=== PATIENT | female | born 1970 | race Caucasian/White ===

== ENCOUNTER 2017-03-20 06:37 | Inpatient (IN) | payer MEDICARE, OTHER ==
[2017-03-20] VITALS (23 sets, daily range): BP systolic 56–118; BP diastolic 34–69; PULSE 52–112; RESP 13–20; TEMP 97.2–98.3; O2SAT 96–100
[2017-03-20 06:48] LABS: BLOOD GAS VENOUS BASE EXCESS -8.7 mmol/L (-2-2); BLOOD GAS VENOUS HCO3 16 mmol/L (22-26); BLOOD GAS VENOUS O2 CONTENT 5.1 Vol % (9.0-17.0); BLOOD GAS VENOUS O2 HGB SAT 47 % (70-76); BLOOD GAS VENOUS PCO2 30 mmHg (44-48); BLOOD GAS VENOUS PO2 31 mmHg (35-40); BLOOD GAS VENOUS pH 7.35 (7.360-7.400); TEMP CORR TO 98.6
[2017-03-20 06:49] LABS: CRITICAL VALUE NO; DRAW SITE IV; FIO2 21 %; OXYGEN DEVICE ROOM AIR; STAT YES
[2017-03-20] MEDS ORDERED: ONDANSETRON HCL 4 MG/2 ML VIAL IV PUSH ONE (07:00)
[2017-03-20] MEDS ORDERED: SODIUM BICARBONATE 8.4% INJ 50 MEQ/50 ML SYR IV PUSH ONE ×3 (07:00→16:45)
[2017-03-20] MEDS ORDERED: ATROPINE SULFATE 1 MG/10 ML SYRINGE IV PUSH ONE (07:00)
[2017-03-20] MEDS ORDERED: CALCIUM GLUCONATE 10% 1 GM/10 ML VIAL IV PUSH ONE ×2 (07:00→07:45)
[2017-03-20] MEDS ORDERED: SODIUM CHLORIDE 0.9% FLUSH 5 ML FLUSH IV FLUSH PRN (07:00)
[2017-03-20 07:06] LABS: AUTOMATED NEUTROPHIL # 6.6 TH/MM3 (1.8-7.7); BASOPHIL # 0.1 TH/MM3 (0-0.2); BASOPHIL % 0.6 % (0.0-2.0); EOSINOPHIL % 0.2 % (0.0-4.0); HEMATOCRIT 25.7 % (35.0-46.0); HEMO FLAGS DIFF FINAL; LYMPH % 25.8 % (9.0-44.0); LYMPHOCYTE # 2.5 TH/MM3 (1.0-4.8); MEAN CELL VOLUME 78.1 FL (80.0-100.0); MEAN CORPUSCULAR HEMOGLOBIN 24.2 PG (27.0-34.0); MEAN CORPUSCULAR HGB CONC 30.9 % (32.0-36.0); MONO % 4.5 % (0.0-8.0); NEUT % 68.9 % (16.0-70.0); PLATELET COUNT 226 TH/MM3 (150-450); RED BLOOD COUNT 3.29 MIL/MM3 (4.00-5.30); RED CELL DISTRIBUTION WIDTH 20.2 % (11.6-17.2); WHITE BLOOD COUNT 9.5 TH/MM3 (4.0-11.0)
[2017-03-20] MEDS ORDERED: DEXTROSE 50% IN WATER 50 ML SYRINGE IV PUSH ONE (07:15)
[2017-03-20] MEDS ORDERED: INSULIN REGULAR (IV INFUSION) 100 UNITS in SODIUM CHLORIDE 0.9% INJ 99 ML IV SCH (07:15)
[2017-03-20] MEDS ORDERED: SODIUM CHLOR 0.9% 250 ML INJ 250 ML IV ONE (07:15)
[2017-03-20] MEDS ORDERED: DEXTROSE 50% IN WATER 50 ML VIAL(D50) IV PUSH PRN (07:15)
[2017-03-20 07:16] LABS: APTT (PATIENT) 23.9 SEC (24.3-30.1); INTERNATIONAL NORMALIZED RATIO 1.1 RATIO; PROTHROMBIN TIME - PATIENT 11.9 SEC (9.8-11.6)
--- NOTE | 2017-03-20 07:23 | RADRPT ---
EXAM DATE/TIME: 03/20/2017 07:03 [facility] COMPARISON: No previous studies available for comparison. INDICATIONS : Syncope. Weakness. MEDICAL HISTORY : None. SURGICAL HISTORY : None. ENCOUNTER: Initial ACUITY: 1 day PAIN SCORE: 6/10 LOCATION: Bilateral chest FINDINGS: A single view of the chest demonstrates the lungs to be symmetrically aerated without evidence of mas s, infiltrate or effusion. The cardiomediastinal contours are unremarkable. Osseous structures are intact. CONCLUSION: No acute cardiopulmonary process. Wayne Hensley MD on March 20, 2017 at 7:21 Board Certified Radiologist. This report was verified electronically.
[2017-03-20] MEDS ORDERED: GLUCAGON 1 MG/ML VIAL IV PUSH ONE ×3 (07:30→09:30)
--- NOTE | 2017-03-20 07:41 | PD ---
HPI Chief Complaint: OD/ Ingestion Time Seen by Provider: 06:49 Travel History International Travel<30 days: No Contact w/Intl Traveler<30days: No Traveled to known affect area: No History of Present Illness HPI Patient is approximately 50-year-old female identified is Vani presents emergency department for altered mental status. According to EMS the patient had taken some pills possibly an attempt to get high tonight. Sometimes after taking her pills she called 911. According to EMS they were pill bottles of verapamil, methadone, hydrocodone/APAP, valproic acid. Patient on arrival is fairly somnolent, hypotensive in the field in the 50s, she received a liter of normal saline prior to arrival with 2 additional liters running wide open on arrival. Patient is significantly altered limiting her history. EMS stated that the patient told them that she flushed her verapamil but later she tells me she took it. 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 SKIN: Focused skin assessment warm/dry. HEAD: Atraumatic. Normocephalic. EYES: Pupils equal and round. No scleral icterus. No injection or drainage. No pinpoint pupils. ENT: No nasal bleeding or discharge. Mucous membranes pink and moist. NECK: Trachea midline. No JVD. CARDIOVASCULAR: Bradycardic with irregular rhythm.. No murmur appreciated. RESPIRATORY: No accessory muscle use. Clear to auscultation. Breath sounds equal bilaterally. GASTROINTESTINAL: Abdomen soft, non-tender, nondistended. Hepatic and splenic margins not palpable. MUSCULOSKELETAL: No obvious deformities. No clubbing. No cyanosis. No edema. NEUROLOGICAL: GCS of 13, follows commands in all 4 extremities, significant only confused unable to provide history. Data Data Last Documented VS Vital Signs Date Time Temp Pulse Resp B/P (MAP) Pulse Ox O2 Delivery O2 Flow Rate FiO2 03/20/17 07:15 90 13 80/42 (55) 100 Room Air 03/20/17 06:38 97.6 Orders Orders Blood Gas Venous (Vbg) (03/20/17 06:30) Electrocardiogram (03/20/17 06:50) Ammonia (03/20/17 06:50) Complete Blood Count With Diff (03/20/17 06:50) Comprehensive Metabolic Panel (03/20/17 06:50) Creatine Kinase (Cpk) (03/20/17 06:50) Prothrombin Time / Inr (Pt) (03/20/17 06:50) Act Partial Throm Time (Ptt) (03/20/17 06:50) Troponin I (03/20/17 06:50) Thyroid Stimulating Hormone (03/20/17 06:50) Urinalysis - C+S If Indicated (03/20/17 06:50) Blood Culture (03/20/17 06:50) Chest, Single Ap (03/20/17 06:50) Blood Glucose (03/20/17 06:50) Ecg Monitoring (03/20/17 06:50) Iv Access Insert/Monitor (03/20/17 06:50) Oximetry (03/20/17 06:50) Sodium Chloride 0.9% Flush (Ns Flush) (03/20/17 07:00) Drug Screen, Random Urine (03/20/17 06:50) Alcohol (Ethanol) (03/20/17 06:50) Tylenol (Acetaminophen) (03/20/17 06:50) Salicylates (Aspirin) (03/20/17 06:50) Calcium Gluconate Inj (Calcium Gluconate (03/20/17 07:00) Atropine Inj (Atropine Inj) (03/20/17 07:00) Sodium Bicarbonate 8.4% Inj (Sodium Bica (03/20/17 07:00) Ondansetron Inj (Zofran Inj) (03/20/17 07:00) Restraints Non-Violent JANES.Q3H (03/20/17 06:53) Urinary Catheter Management JANES.Q8H (03/20/17 06:53) Type And Screen (03/20/17 07:10) Red Blood Cells (Rbc) (03/20/17 07:10) Blood Product Administration (03/20/17 07:10) Sodium Chlor 0.9% 250 Ml Inj (Ns 250 Ml (03/20/17 07:15) Valproic Acid (Depakene) (03/20/17 07:14) Notify Dr: Other (03/20/17 07:11) Bedside Glucose .As Directed (03/20/17 07:11) Hypoglycemia Cc <80 Mg/Dl (03/20/17 07:11) Insulin Regular (Iv Infusion) (Novolin R (03/20/17 07:15) Dextrose 50% In Zoe (Vial) Inj (D50w (Vi (03/20/17 07:15) Dextrose 50% In Zoe (Syr) Inj (D50w (Syr (03/20/17 07:15) Admit Order (Ed Use Only) (03/20/17 ) Labs Laboratory Tests Test 03/20/17 06:30 03/20/17 06:42 03/20/17 07:20 Blood Gas Puncture Site IV Blood Gas Patient Temperature 98.6 Venous Blood pH 7.35 Venous Blood Partial Pressure CO2 30 mmHg Venous Blood Partial Pressure O2 31 mmHg Venous Blood HCO3 16 mmol/L Venous Blood Oxygen Saturation 47 % Venous Blood Oxygen Content 5.1 Vol % Venous Blood Base Excess -8.7 mmol/L Oxygen Delivery Device ROOM AIR Blood Gas Inspired Oxygen 21 % White Blood Count 9.5 TH/MM3 Red Blood Count 3.29 MIL/MM3 Hemoglobin 7.9 GM/DL Hematocrit 25.7 % Mean Corpuscular Volume 78.1 FL Mean Corpuscular Hemoglobin 24.2 PG Mean Corpuscular Hemoglobin Concent 30.9 % Red Cell Distribution Width 20.2 % Platelet Count 226 TH/MM3 Mean Platelet Volume 7.7 FL Neutrophils (%) (Auto) 68.9 % Lymphocytes (%) (Auto) 25.8 % Monocytes (%) (Auto) 4.5 % Eosinophils (%) (Auto) 0.2 % Basophils (%) (Auto) 0.6 % Neutrophils # (Auto) 6.6 TH/MM3 Lymphocytes # (Auto) 2.5 TH/MM3 Monocytes # (Auto) 0.4 TH/MM3 Eosinophils # (Auto) 0.0 TH/MM3 Basophils # (Auto) 0.1 TH/MM3 CBC Comment DIFF FINAL Differential Comment Prothrombin Time 11.9 SEC Prothromb Time International Ratio 1.1 RATIO Activated Partial Thromboplast Time 23.9 SEC Blood Urea Nitrogen 6 MG/DL Creatinine 0.91 MG/DL Random Glucose 167 MG/DL Total Protein 5.1 GM/DL Albumin 2.1 GM/DL Calcium Level 6.8 MG/DL Alkaline Phosphatase 59 U/L Aspartate Amino Transf (AST/SGOT) 14 U/L Alanine Aminotransferase (ALT/SGPT) 15 U/L Total Bilirubin 0.2 MG/DL Sodium Level 140 MEQ/L Potassium Level 2.7 MEQ/L Chloride Level 109 MEQ/L Carbon Dioxide Level 16.0 MEQ/L Anion Gap 15 MEQ/L Estimat Glomerular Filtration Rate 53 ML/MIN Protein Corrected Calcium 7.8 MG/DL Ammonia 35 MCMOL/L Total Creatine Kinase 37 U/L Troponin I LESS THAN 0.02 NG/ML Thyroid Stimulating Hormone 3rd Gen 0.229 uIU/ML Salicylates Level 2.5 MG/DL Acetaminophen Level 6.1 MCG/ML Valproic Acid (Depakene) Level 70 MCG/ML Ethyl Alcohol Level 54 MG/DL Urine Color LIGHT-YELLOW Urine Turbidity CLEAR Urine pH 6.0 Urine Specific Dyer 1.005 Urine Protein 30 mg/dL Urine Glucose (UA) NEG mg/dL Urine Ketones NEG mg/dL Urine Occult Blood NEG Urine Nitrite NEG Urine Bilirubin NEG Urine Urobilinogen LESS THAN 2.0 MG/DL Urine Leukocyte Esterase SMALL Urine WBC 4 /hpf Urine Squamous Epithelial Cells 1 /hpf Urine Bacteria RARE /hpf Microscopic Urinalysis Comment CATH-CULTURE IND Urine Opiates Screen NEG Urine Barbiturates Screen NEG Urine Amphetamines Screen NEG Urine Benzodiazepines Screen NEG Urine Cocaine Screen POS Urine Cannabinoids Screen NEG [facility] Medical Decision Making Medical Screen Exam Complete: Yes Emergency Medical Condition: Yes Differential Diagnosis Calcium channel herber overdose, Tylenol overdose, Depakote overdose, suicidal ideation, suicide attempt, altered mental status, Narrative Course Patient roomed in the emergency department, my initial concerns for this patient are her bradycardia and hypotension in the setting of a verapamil use. Immediately the patient was transferred over to the stretcher and attached to defibrillator pads for monitoring. I reviewed tracings from EMS and the patient appears to have been in third-degree heart block prior to arrival and bradycardic in the 50s. Confirming IV access, the patient was given calcium gluconate 2 g IV, atropine 1 mg IV, bicarbonate 1 amp IV. These medications increase the patient's heart rate from 50-80-90. She appears to be in sinus rhythm now. Given the timing of the medicines that appears to calcium gluconate was the most effective medicine. Her blood pressure remaining hypotensive in the 70s to 80s systolics with maps of 50-60. She was then given a total of 3 mg of glucagon, an additional 2 g of calcium gluconate. I had also given the patient pushed dose pressure to a total of 100 g of epinephrine. This seemed to have no effect on her blood pressure. After all these interventions the patient remaining hypotensive decision was made by myself and Dr. Helm to start the patient on high-dose insulin therapy. She was given a bolus of D50 half amp prior to starting an infusion of regular insulin at 50 units per hour. Her sugar was monitored closely while in the emergency department. She had no hypoglycemia. The patient's labs then began to return and the patient is hypokalemic at 2.7. Potassium replacement has been ordered. The patient also has a history of Tylenol ingestion without a specific timeline the patient was started on Acetadote per protocol. Dr. Helm at the bedside has placed a radial art line for measurement of blood pressure. Patient also being started on Levophed at this time. Blood pressure remains quite low in the emergency department. Unclear the actual cause of her blood pressure the patient remains critically ill. She will be moved to the ICU for ongoing critical care under Dr. Hlem. Critical Care Narrative Aggregate critical care time was [address] Helm and I working in conjunction have been working on this patient for a total of 90 minutes at the bedside that I was present for. He remained at the bedside for additional time in the emergency department. Time to perform other separately billable procedures was not included in the critical care time. My time did not include minutes spent treating any other patients simultaneously or on activities that did not directly contribute to the patient's treatment. The services I provided to this patient were to treat and/or prevent clinically significant deterioration that could result in: , disability, organ failure I provided critical care services requiring my management, as noted below: Chart data review, documentation time, medication orders and management, vital sign assessments/reviewing monitor data, ordering and reviewing lab tests, ordering and interpreting/reviewing x-rays and diagnostic studies, care of the patient and discussion of the patient with the admitting physicians. Diagnosis Primary Impression: Shock Additional Impressions: Calcium channel herber overdose Tylenol overdose Hypokalemia Hypocalcemia Admitting Information Admitting Physician Requests: Admit Scripts Unable to Obtain Active Prescriptions or Reported Meds Condition: Critical Federico Love MD Mar 20, 2017 07:41
[2017-03-20] MEDS ORDERED: TERBUTALINE INJ 1 MG/ML AMP SQ PRN (07:45)
[2017-03-20 07:47] LABS: ACETAMINOPHEN 6.1 MCG/ML (10.0-30.0); ALCOHOL 54 MG/DL (0-5); ALKALINE PHOSPHATASE 59 U/L (45-117); ALT (GPT) 15 U/L (10-53); ANION GAP 15 MEQ/L (5-15); AST (GOT) 14 U/L (15-37); BLOOD UREA NITROGEN 6 MG/DL (7-18); CALCIUM-PROTEIN CORRECTED 7.8 MG/DL (8.5-10.1); CHLORIDE 109 MEQ/L (98-107); CREATINE KINASE 37 U/L (26-192); GLOMERULAR FILTRATION RATE 53 ML/MIN (>89); SODIUM (NA) 140 MEQ/L (136-145); TOTAL BILIRUBIN ADULT 0.2 MG/DL (0.2-1.0)
[2017-03-20 07:48] LABS: POTASSIUM 2.7 MEQ/L (3.5-5.1)
[2017-03-20] MEDS ORDERED: DEXTROSE 5% IV ONE ×6 (08:00→10:00)
[2017-03-20] MEDS ORDERED: ACETYLCYSTEINE IV ONE ×4 (08:00→09:00)
[2017-03-20] MEDS ORDERED: MAGNESIUM SULFATE INJ 4 GM in SODIUM CHLORIDE 0.9% INJ 92 ML IV PRN (08:00)
[2017-03-20] MEDS ORDERED: MAGNESIUM SULFATE INJ 2 GM in SODIUM CHLORIDE 0.9% INJ 96 ML IV PRN (08:00)
[2017-03-20] MEDS ORDERED: RESP: ALBUTEROL 2.5 MG/IPRATROPIUM 0.5 MG NEB (PRN) INH (08:00)
[2017-03-20] MEDS ORDERED: MISCELLANEOUS NURSING INFORMATION XX SCH (08:00)
[2017-03-20] MEDS ORDERED: POTASSIUM CHLOR 20 MEQ PREMIX 100 ML IV PRN ×2 (08:00)
[2017-03-20] MEDS ORDERED: POTASSIUM PHOSPHATE MONOBASIC 500 MG TAB PO PRN (08:00)
[2017-03-20] MEDS ORDERED: POTASSIUM PHOSPHATE MONOBASIC 500 MG TAB PO/TUBE PRN (08:00)
[2017-03-20] MEDS ORDERED: CHLORHEXIDINE GLUCONATE 2 % 1 PACK (2 CLOTHS) TOP PRN (08:00)
[2017-03-20] MEDS ORDERED: WATER IV ONE ×4 (08:00→10:00)
[2017-03-20] MEDS ORDERED: SODIUM PHOSPHATE INJ 30 MMOL in SODIUM CHLOR 0.9% 250 ML INJ 240 ML IV PRN (08:00)
[2017-03-20] MEDS ORDERED: ONDANSETRON HCL 4 MG/2 ML VIAL IV PUSH PRN (08:00)
[2017-03-20] MEDS ORDERED: POTASSIUM CHLOR 40 MEQ PREMIX 100 ML IV PRN ×2 (08:00)
[2017-03-20] MEDS ORDERED: MAGNESIUM OXIDE 400 MG TAB PO PRN (08:00)
--- NOTE | 2017-03-20 08:00 | HHI.HP ---
[facility] Service Critical Care Medicine Primary Care Physician Admission Diagnosis Suspected Verapamil OD Diagnosis: Chief Complaint: intentional overdose Travel History International Travel<30 Days: No Contact w/Intl Traveler <30 Da: No Traveled to Known Affected Are: No History of Present Illness This is a middle-aged female with an unknown past medical history who presents after intentional overdose of medications. EMS found her with an empty bottle of verapamil. Per her initial report, she flushed these pills down the toilet, however, in the ER she may have admitted to taking some or all of them. She also endorsed taking a bottle of Lortab. She endorsed taking a bottle of valproic acid as well. Her tylenol level was 6. her VPA level was 17. EMS said they found empty bottles of verapamil, lortab, methodone, and valproic acid. The patient refuses to answer questions about her medical history or what pills she took. She is arousable but somnolent, but refusing to cooperate. In the emergency department she was given 4gm CaCl, 3 mg glucagon, epinephrine, started on a levophed drip, and then started on high dose insulin therapy at 50 units/hr (1 unit/kg/hr). When I initially evaluated the patient, she was protecting her airway, however, once she arrived to the ICU, she became nauseated and started vomiting, with her somnolence she was no longer protecting her airway and she was emergently intubated. I placed arterial and central lines. we started vasopressin. we increased her insulin drip to 150 units/hr. I discussed the case with poison control who recommended against activated charcoal at this time. they recommended drawing serum osms which we have done. Review of Systems ROS Limitations: Clinical Condition, Altered Mental Status, Refused Past Family Social History Allergies: Coded Allergies: Penicillins (Verified Allergy, Intermediate, 03/20/17) Past Medical History unknown and patient unwilling to participate and give us any information regarding her medical condition. Past Surgical History unknown and patient unwilling to participate and give us any information regarding her medical condition. Reported Medications unknown and patient unwilling to participate and give us any information regarding her medical condition. Active Ordered Medications See MAR Family History unknown and patient unwilling to participate and give us any information regarding her medical condition. Social History unknown and patient unwilling to participate and give us any information regarding her medical condition. Physical Exam Vital Signs Vital Signs Date Time Temp Pulse Resp B/P (MAP) Pulse Ox O2 Delivery O2 Flow Rate FiO2 03/20/17 08:00 83 14 76/41 (53) 100 Nasal Cannula 2.00 03/20/17 07:32 100 Room Air 03/20/17 07:30 91 14 75/43 (54) 100 Room Air 03/20/17 07:15 90 13 80/42 (55) 100 Room Air 03/20/17 07:00 92 14 81/44 (56) 100 Room Air 03/20/17 06:51 86 16 78/46 (57) 100 03/20/17 06:44 60 14 100 03/20/17 06:38 97.6 52 14 66/34 (45) 100 Physical Exam gen: small cachectic appearing middle-aged female, lying in bed, somnolent, in distress heent: pupils 2mm equal, reactive, conjugate. mucous membranes moist. neck: trachea midline. no jvd chest: equal chest rise. clear to auscultation cv: normal rate, HR 74 on my initial evaluation. sinus. hypotensive on my initial evaluation 70s/40s. abd: soft, nontender, nondistended, no guarding extr: 1+ distal pulses, no edema neuro: RASS -2 initially. follows commands when aroused. Bedside Critical Care ultrasound: grossly normal biventricular function, IVC ~ 2cm but with 30-50% respiratory variation, no pericardial effusion. Laboratory Laboratory Tests Test 03/20/17 06:30 03/20/17 06:42 03/20/17 07:20 Blood Gas Puncture Site IV Blood Gas Patient Temperature 98.6 Venous Blood pH 7.35 Venous Blood Partial Pressure CO2 30 Venous Blood Partial Pressure O2 31 Venous Blood HCO3 16 Venous Blood Oxygen Saturation 47 Venous Blood Oxygen Content 5.1 Venous Blood Base Excess -8.7 Oxygen Delivery Device ROOM AIR Blood Gas Inspired Oxygen 21 White Blood Count 9.5 Red Blood Count 3.29 Hemoglobin 7.9 Hematocrit 25.7 Mean Corpuscular Volume 78.1 Mean Corpuscular Hemoglobin 24.2 Mean Corpuscular Hemoglobin Concent 30.9 Red Cell Distribution Width 20.2 Platelet Count 226 Mean Platelet Volume 7.7 Neutrophils (%) (Auto) 68.9 Lymphocytes (%) (Auto) 25.8 Monocytes (%) (Auto) 4.5 Eosinophils (%) (Auto) 0.2 Basophils (%) (Auto) 0.6 Neutrophils # (Auto) 6.6 Lymphocytes # (Auto) 2.5 Monocytes # (Auto) 0.4 Eosinophils # (Auto) 0.0 Basophils # (Auto) 0.1 CBC Comment DIFF FINAL Differential Comment Prothrombin Time 11.9 Prothromb Time International Ratio 1.1 Activated Partial Thromboplast Time 23.9 Blood Urea Nitrogen 6 Creatinine 0.91 Random Glucose 167 Total Protein 5.1 Albumin 2.1 Calcium Level 6.8 Alkaline Phosphatase 59 Aspartate Amino Transf (AST/SGOT) 14 Alanine Aminotransferase (ALT/SGPT) 15 Total Bilirubin 0.2 Sodium Level 140 Potassium Level 2.7 Chloride Level 109 Carbon Dioxide Level 16.0 Anion Gap 15 Estimat Glomerular Filtration Rate 53 Protein Corrected Calcium 7.8 Ammonia 35 Total Creatine Kinase 37 Troponin I LESS THAN 0.02 Thyroid Stimulating Hormone 3rd Gen 0.229 Salicylates Level 2.5 Acetaminophen Level 6.1 Ethyl Alcohol Level 54 Date/Time Source Procedure Growth Status 03/20/17 07:25 Blood Peripheral Aerobic Blood Culture Pending Received 03/20/17 07:25 Blood Peripheral Anaerobic Blood Culture Pending Received Result Diagram: 03/20/17 0642 03/20/17 0642 Imaging Last Impressions Chest X-Ray 03/20/17 0650 Signed Impressions: Service Date/Time: Monday, March 20, 2017 07:03 - CONCLUSION: No acute cardiopulmonary process. MD Ramona Mast VTE Risk Assessment Ramona VTE Risk Assessment: Mod/High Risk (score >= 2) Caprini Risk Assessment Model Point Value = 1 Point Value = 2 Point Value = 3 Point Value = 5 Age 41-60 Minor surgery BMI > 25 kg/m2 Swollen legs Varicose veins or History of unexplained or recurrent spontaneous Oral contraceptives or hormone replacement Sepsis (< 1 month) Serious lung disease, including pneumonia (< 1 month) Abnormal pulmonary function Acute myocardial infarction Congestive heart failure (< 1 month) History of inflammatory bowel disease Medical patient at bed rest Age 61-74 Arthroscopic surgery Major open surgery (> 45 min) Laparoscopic surgery (> 45 min) Malignancy Confined to bed (> 72 hours) Immobilizing plaster cast Central venous access Age >= 75 History of VTE Family history of VTE Factor V Leiden Prothrombin [id number] Lupus anticoagulant Anticardiolipin antibodies Elevated serum homocysteine Heparin-induced thrombocytopenia Other congenital or acquired thrombophilia Stroke (< 1 month) Elective arthroplasty Hip, pelvis, or leg fracture Acute spinal cord injury (< 1 month) Prophylaxis Regimen Total Risk Factor Score Risk Level Prophylaxis Regimen 0-1 Low Early ambulation 2 Moderate Order ONE of the following: *Sequential Compression Device (SCD) *Heparin 5000 units SQ BID 3-4 Higher Order ONE of the following medications: *Heparin 5000 units SQ TID *Enoxaparin/Lovenox 40 mg SQ daily (WT < 150 kg, CrCl > 30 mL/min) *Enoxaparin/Lovenox 30 mg SQ daily (WT < 150 kg, CrCl > 10-29 mL/min) *Enoxaparin/Lovenox 30 mg SQ BID (WT < 150 kg, CrCl > 30 mL/min) AND/OR *Sequential Compression Device (SCD) 5 or more Highest Order ONE of the following medications: *Heparin 5000 units SQ TID (Preferred with Epidurals) *Enoxaparin/Lovenox 40 mg SQ daily (WT < 150 kg, CrCl > 30 mL/min) *Enoxaparin/Lovenox 30 mg SQ daily (WT < 150 kg, CrCl > 10-29 mL/min) *Enoxaparin/Lovenox 30 mg SQ BID (WT < 150 kg, CrCl > 30 mL/min) AND *Sequential Compression Device (SCD) Assessment and Plan Assessment and Plan Assessment: middle-aged female with intentional overdose of suspected Verapamil , methadone, valproic acid and possibly lortab overdose. Her hemodynamics are consistent with calcium channel herber overdose. I have had multiple conversations with poison control this morning. They recommend insulin drip as high as 10 units/kg/hr and a glucagon drip around 3-5 mg/hr. They also recommend serial q4h K, VPA, ammonia levels. The patient is now in multi-organ system failure secondary to her toxic overdose and remains critically ill in decompensating hemodynamic collapse. Plan by systems: Neurologic: Suspected valproic acid overdose Toxic encephalopathy Suspected Lortab overdose Suicide attempt - Frequent neuro checks - serial q4h VPA levels, ammonia levels - versed drip for RASS goal -2 Respiratory: Acute hypoxic and hypercarbic respiratory failure - Secondary to overdose - No weaning of mechanical ventilation until mental status improves and shock improves - wean fio2 for spo2 > 92% - vent bundle, hob at 30 degrees, nebs Cardiovascular: Calcium channel herber overdose Hemodynamic collapse secondary to overdose Mixed cardiogenic/distributive shock secondary to overdose - high dose insulin therapy currently at 3 units/kg/hr, may go up to 10 units/kg /hr - glucagon at 3 mg/hr - levophed at 30 mcg/min - vasopressin at 0.04 units/min - may need to start epinephrine infusion - goal map > 65 mmHg Renal: Acute kidney injury -- Strict I/Os - Secondary to hemodynamic collapse - Continue [place] FEN/GI: Acute protein calorie malnutrition - moderate Life-threatening hypokalemia Hyperammonemia - serial ammonia levels - aggressive replacement of K. at Poison control's recommendation, will tolerate permissive hypokalemia, however, need to keep serum level at least around 3, currently 2.7 - NPO while in refractory shock - serial q4h K - daily bmp Heme/ID: Anemia- unknown cause - hgb > 7. will monitor. no signs of active bleeding. may likely be from iron deficiency or critical illness - transfuse for hgb < 7. - no infectious etiology suspected at this time. afebrile, normal wbc. Endocrine: High-dose insulin therapy High-dose glucagon infusion - serial q30m glucose monitoring -- SSI Prophylaxis: GI Prophylaxis Pepcid IV DVT Prophylaxis -- SCDs Lovenox Lines: - 03/20 right radial art line - 03/20 left SC TLC - [place] Dispo: Remain in the ICU. Very critically ill in decompensating This patient remains critically ill with one or more organ systems which are or may become a threat to life. I have spent in excess of 133 minutes discontinuously in the care and management of this patient. This time is exclusive of procedures, and includes, but is not limited to, evaluation of the patient, review of the medical record, discussions with family, consultants, nursing staff, or respiratory therapy, and documentation in the medical record. Code Status Full Code Discussed Condition With multiple conversations with poison control, ER physician, bedside RN and charge lpn. Sidney Whitehead MD Mar 20, 2017 08:00
[2017-03-20] MEDS: NOREPINEPHRINE-DEXTROSE DRIP 250 ML IV PRN ×3 (08:11→18:08)
[2017-03-20 08:12] LABS: BACTERIA, URINE RARE /hpf; BLOOD, URINE NEG (NEG); GLUCOSE,URINE NEG (NEG); KETONE, URINE NEG (NEG); NITRITE,URINE NEG (NEG); SQUAMOUS EPITHELIAL CELL URINE 1 /hpf (0-5); URINE COLOR LIGHT-YELLOW (YELLW/STRAW)
[2017-03-20 08:16] LABS: COMMENT (UR) CATH-CULTURE IND; CULTURE IF INDICATED CATH CULTURE IND
[2017-03-20] MEDS ORDERED: MULTIVITAMIN INJ 10 ML, THIAMINE INJ 100 MG, FOLIC ACID INJ 1 MG in SODIUM CHLOR 0.45% ... IV ONE (08:45)
[2017-03-20] MEDS ORDERED: EPINEPHrine (1:1000) INJ 2 MG in DEXTROSE 5% IN WATER INJ 250 ML IV PRN ×2 (08:45)
[2017-03-20] MEDS ORDERED: POTASSIUM CHLOR 20 MEQ PREMIX 100 ML IV SCH (08:45)
[2017-03-20] MEDS ORDERED: WATE IV ONE ×2 (09:00)
[2017-03-20 09:46] LABS: BLOOD GAS BASE EXCESS -9.1 mmol/L (-2-2); BLOOD GAS CARBOXYHEMOGLOBIN 2.4 % (0-4); BLOOD GAS HCO3 15 mmol/L (22-26); BLOOD GAS METHEMOGLOBIN 0.9 % (0-2); BLOOD GAS O2 HGB SATURATION 95 % (90-100); BLOOD GAS OXYGEN CONTENT 11.7 Vol % (12.0-20.0); BLOOD GAS PCO2 24 mmHg (38-42); BLOOD GAS PO2 109 mmHg (61-120); BLOOD GAS TOTAL HGB 8.6 G/DL (12.0-16.0); TEMP CORR TO 98.6
[2017-03-20 09:47] LABS: CRITICAL VALUE YES; DRAW SITE ART LINE; LITER FLOW 1 L/M; OXYGEN DEVICE NASAL CANNULA; STAT YES
[2017-03-20] MEDS ORDERED: CALCIUM CHLORIDE IV ONE ×2 (10:00)
--- NOTE | 2017-03-20 10:56 | RADRPT ---
EXAM DATE/TIME: 03/20/2017 10:41 [facility] COMPARISON: CHEST SINGLE AP, March 20, 2017, 7:03. INDICATIONS : Intubation and central line placement. MEDICAL HISTORY : None. SURGICAL HISTORY : None. ENCOUNTER: Initial ACUITY: 1 day PAIN SCORE: Non-responsive. LOCATION: Bilateral chest FINDINGS: Patient is intubated with ET tube tip 2.7 cm from the su in good position. There is a left subcla vian line in place with the tip overlying the junction of the SVC and right atrium. A pneumothorax is not seen. The heart size is normal. There is some prominence of the lung markings which could sugges t some edema. There is further increased density at the left base reflecting some consolidation or at electasis. CONCLUSION: 1. ET tube and left subclavian line in good position. 2. Prominence of the lung markings likely related to edema or some degree of fluid overload. Wayne Hensley MD on March 20, 2017 at 10:53 Board Certified Radiologist. This report was verified electronically.
[2017-03-20 11:01] LABS: ANION GAP 17 MEQ/L (5-15); BICARBONATE 17.9 MEQ/L (21.0-32.0); BLOOD UREA NITROGEN 8 MG/DL (7-18); CHLORIDE 108 MEQ/L (98-107); GLOMERULAR FILTRATION RATE 33 ML/MIN (>89); SODIUM (NA) 143 MEQ/L (136-145)
[2017-03-20 11:02] LABS: ALCOHOL LESS THAN 3 MG/DL (0-5)
[2017-03-20 11:04] LABS: POTASSIUM 2.7 MEQ/L (3.5-5.1)
--- NOTE | 2017-03-20 11:14 | EKG ---
Date Performed: 03/20/2017 Time Performed: 06:45:40 PTAGE: 89 years EKG: Baseline artifact present Slight decrease in heart rate towards the end of the strip of unc lear significance given baseline artifact Normal Sinus rhythm With first degree A-V block NONSPECIFIC ST & T-WAVE ABNORMALITY ABNORMAL RHYTHM ECG NO PREVIOUS TRACING DOCTOR: Jimmy Ellington Interpretating Date/Time 03/20/2017 11:12:51
[2017-03-20 11:26] LABS: BLOOD GAS BASE EXCESS -8.9 mmol/L (-2-2); BLOOD GAS CARBOXYHEMOGLOBIN 1.7 % (0-4); BLOOD GAS HCO3 16 mmol/L (22-26); BLOOD GAS METHEMOGLOBIN 1.1 % (0-2); BLOOD GAS O2 HGB SATURATION 96 % (90-100); BLOOD GAS OXYGEN CONTENT 12.1 Vol % (12.0-20.0); BLOOD GAS PCO2 34 mmHg (38-42); BLOOD GAS PO2 150 mmHg (61-120); BLOOD GAS TOTAL HGB 8.7 G/DL (12.0-16.0); CRITICAL VALUE YES; OXYGEN DEVICE VENTILATOR; TEMP CORR TO 98.6
[2017-03-20 11:27] LABS: DRAW SITE RT BRACHIAL; FIO2 40 %; NUMBER OF ARTERIAL PUNCTURES 1; STAT NO; ULNAR PULSE PRESENT; VENT SETTINGS A/C 500/20/5PEEP
--- NOTE | 2017-03-20 11:35 | PD.PROCEDR ---
Procedure Note Procedure Endotracheal Intubation Diagnosis: Active vomiting and toxic encephalopathy Indications: Worsening acute hypoxic and hypercarbic respiratory failure Consent: Emergent Anesthesia: Versed 10 mg IV, Rocuronium 100 g IV Description of the Procedure: The patient was positioned in the sniffing position. Pre-oxygenation was performed using a [id number]. Anesthesia was induced via rapid sequence. A Hernandez #2 was used for laryngoscopy and a Grade I view was obtained after slight cricoid pressure. Patient's area was slightly anterior and required small amount of cricoid pressure to obtain grade 1 view. A 8.0 cuffed endotracheal tube was inserted atraumatically through the vocal cords. Confirmation of correct endotracheal tube placement was made by equal and bilateral breath sounds and colorimetric CO2 detection. The endotracheal tube was secured at 22 cm at the teeth. There were no immediate complications noted. The patient since admission to the hospital has been hemodynamically unstable. She remains so without any worsening hypotension observed.. A chest x-ray has been ordered. I personally performed the procedure. Sideny Whitehead MD Mar 20, 2017 11:35
--- NOTE | 2017-03-20 11:37 | PD.PROCEDR ---
Procedure Note Procedure Central Line Procedure Note Left subclavian triple lumen catheter Diagnosis: Calcium Channel herber overdose Indications: Need for highly potent vasoactive substances Consent: Emergent Anesthesia: Versed IV Description of the Procedure: The patient was placed in the supine, mild- Trendelenburg position. The area was prepped and draped sterilely. A 19g needle was inserted under negative pressure aspiration and dark venous blood was obtained. A guidewire was inserted easily without resistance. A small incision was made using a #11 blade. Using a modified Seldinger technique, the dilator and 7 Dominican, 20 cm catheter were advanced over the guidewire without resistance. All ports were aspirated and flushed, and had brisk blood return. The line was secured at 20 centimeter at the skin using 2-0 silk interrupted sutures. A Biopatch and Transparent sterile dressing were applied. There were no immediate complications noted. There was minimal EBL. The patient tolerated the procedure well. Ultrasound guidance was not used for this procedure A Chest x-ray has been ordered. I personally performed the procedure. Sidney Whitehead MD Mar 20, 2017 11:37
--- NOTE | 2017-03-20 11:37 | PD.PROCEDR ---
Procedure Note Procedure Procedure: Arterial Line Placement Right radial arterial line Diagnosis: Calcium channel herber overdose Indications: For beat to beat hemodynamic monitoring Consent: Emergent Description of the Procedure: The right wrist was prepped and draped sterilely. 1% lidocaine was used for local anesthesia. The pulse was located and a needle was advanced into the artery. A 20 gauge, 12 cm catheter was advanced into the artery using a modified Seldinger technique. The catheter was sutured to the skin and a sterile dressing was applied. The catheter was connected to a pressure transducer and an arterial waveform was noted. There were no immediate complications noted. There was minimal EBL. I personally performed the procedure. Sidney Whitehead MD Mar 20, 2017 11:37
[2017-03-20] MEDS ORDERED: ACETYLCYSTEINE INJ 5,000 MG in DEXTROSE 5% IN WATE 1000ML INJ 1,000 ML IV ONE ×2 (13:00)
[2017-03-20] MEDS ORDERED: SODIUM BICARBONATE 8.4% INJ 100 ML ONE (13:23)
[2017-03-20] MEDS ORDERED: METHYLENE BLUE 100 MG/10 ML VIAL IV ONE (13:30)
[2017-03-20] MEDS ORDERED: EPINEPHrine HCL (1:1000) 1 MG/ML VIAL ONE (14:24)
[2017-03-20 15:03] LABS: LACTIC ACID GHOST NOT REPORTABLE
[2017-03-20] MEDS: VASOPRESSIN INJ 40 UNITS in DEXTROSE 5% IN WATER 100ML INJ 98 ML IV SCH ×2 (15:50)
[2017-03-20] MEDS: POTASSIUM CHLOR 40 MEQ PREMIX 100 ML IV SCH ×2 (15:51→15:59)
[2017-03-20] MEDS: HYDROCORTISONE SOD SUCCINATE 100 MG VIAL IV PUSH SCH ×2 (15:52→23:02)
[2017-03-20] MEDS: INSULIN REGULAR IV SCH ×6 (15:56→23:28)
[2017-03-20] MEDS: SODIUM CHLORID 0.9% IV SCH ×6 (15:56→23:28)
[2017-03-20] MEDS: GLUCAGON IV SCH ×6 (15:57→21:10)
[2017-03-20] MEDS: DEXTROSE 5% IV SCH ×6 (15:57→21:10)
[2017-03-20] MEDS: WATER IV SCH ×6 (15:57→21:10)
--- NOTE | 2017-03-20 16:07 | PD.PROCEDR ---
Procedure Note Procedure Procedure: Arterial Line Placement Left radial arterial line Diagnosis: Calcium channel herber overdose Indications: Need for beat to beat hemodynamic monitoring Consent: Emergent Description of the Procedure: The left wrist was prepped and draped sterilely. 1% lidocaine was used for local anesthesia. The pulse was located and a needle was advanced into the artery. A 20 gauge, 12 cm catheter was advanced into the artery using a modified Seldinger technique. The catheter was sutured to the skin and a sterile dressing was applied. The catheter was connected to a pressure transducer and an arterial waveform was noted. There were no immediate complications noted. There was minimal EBL. I personally performed the procedure. Sidney Whitehead MD Mar 20, 2017 16:07
[2017-03-20 16:55] LABS: HEMATOCRIT 27.3 % (35.0-46.0); MEAN CELL VOLUME 77.7 FL (80.0-100.0); MEAN CORPUSCULAR HEMOGLOBIN 23.7 PG (27.0-34.0); MEAN CORPUSCULAR HGB CONC 30.5 % (32.0-36.0); PLATELET COUNT 320 TH/MM3 (150-450); RED BLOOD COUNT 3.52 MIL/MM3 (4.00-5.30); RED CELL DISTRIBUTION WIDTH 19.8 % (11.6-17.2); REVIEW FLAG FINAL; WHITE BLOOD COUNT 25.5 TH/MM3 (4.0-11.0)
[2017-03-20 17:39] LABS: BICARBONATE 16.6 MEQ/L (21.0-32.0)
[2017-03-20 18:15] LABS: POTASSIUM 2.7 MEQ/L (3.5-5.1)
[2017-03-20] MEDS: MIDAZOLAM 100 MG/NS 100 ML DRIP Premix IV PRN (21:10)
[2017-03-20] MEDS: FAMOTIDINE 20 MG/2 ML VIAL IV PUSH SCH (21:11)
[2017-03-20 22:49] LABS: BICARBONATE 23.5 MEQ/L (21.0-32.0); POTASSIUM 3.2 MEQ/L (3.5-5.1)
[2017-03-21] VITALS (18 sets, daily range): BP systolic 100–147; BP diastolic 62–76; PULSE 75–98; RESP 20–27; TEMP 98.3–100.4; O2SAT 95–100
[2017-03-21] MEDS: SODIUM CHLORID 0.9% IV SCH ×3 (00:38→02:36)
[2017-03-21] MEDS: INSULIN REGULAR IV SCH ×3 (00:38→02:36)
[2017-03-21] MEDS: VASOPRESSIN INJ 40 UNITS in DEXTROSE 5% IN WATER 100ML INJ 98 ML IV SCH ×2 (00:39)
[2017-03-21] MEDS ORDERED: DEXTROSE 5% IN WATE 1000ML INJ 1,000 ML IV SCH (01:30)
[2017-03-21] MEDS ORDERED: INSULIN REGULAR IV SCH (01:30)
[2017-03-21] MEDS ORDERED: SODIUM CHLORID 0.9% IV SCH (01:30)
[2017-03-21] MEDS: CHLORHEXIDINE GLUCONATE 2 % 1 PACK (2 CLOTHS) TOP SCH (04:00)
[2017-03-21 04:20] LABS: HEMATOCRIT 25.1 % (35.0-46.0); MEAN CELL VOLUME 76.8 FL (80.0-100.0); MEAN CORPUSCULAR HEMOGLOBIN 23.7 PG (27.0-34.0); MEAN CORPUSCULAR HGB CONC 30.9 % (32.0-36.0); PLATELET COUNT 252 TH/MM3 (150-450); RED BLOOD COUNT 3.26 MIL/MM3 (4.00-5.30); RED CELL DISTRIBUTION WIDTH 19.4 % (11.6-17.2); REVIEW FLAG FINAL; WHITE BLOOD COUNT 26.2 TH/MM3 (4.0-11.0)
[2017-03-21 04:32] LABS: INTERNATIONAL NORMALIZED RATIO 1.2 RATIO; PROTHROMBIN TIME - PATIENT 13.1 SEC (9.8-11.6)
[2017-03-21 04:44] LABS: ACETAMINOPHEN 4.9 MCG/ML (10.0-30.0); BICARBONATE 23.9 MEQ/L (21.0-32.0); INDIRECT BILIRUBIN 0.2 MG/DL (0.0-0.8); POTASSIUM 3.4 MEQ/L (3.5-5.1); TOTAL BILIRUBIN ADULT 0.3 MG/DL (0.2-1.0)
[2017-03-21] MEDS: DEXTROSE 5% IV SCH ×10 (06:11→22:25)
[2017-03-21] MEDS: WATER IV SCH ×12 (06:11→22:25)
[2017-03-21] MEDS: GLUCAGON IV SCH ×10 (06:11→22:25)
[2017-03-21] MEDS: MIDAZOLAM 100 MG/NS 100 ML DRIP Premix IV PRN ×2 (06:12→17:36)
[2017-03-21] MEDS: THIAMINE INJ 100 MG in SODIUM CHLORIDE 0.9% INJ 100 ML IV SCH (06:53)
[2017-03-21] MEDS ORDERED: DEXTROSE 10% INJ 1,000 ML IV SCH (07:00)
[2017-03-21 07:32] LABS: BLOOD GAS BASE EXCESS -4.3 mmol/L (-2-2); BLOOD GAS CARBOXYHEMOGLOBIN 1.5 % (0-4); BLOOD GAS HCO3 19 mmol/L (22-26); BLOOD GAS O2 HGB SATURATION 97 % (90-100); BLOOD GAS OXYGEN CONTENT 10.4 Vol % (12.0-20.0); BLOOD GAS PCO2 29 mmHg (38-42); BLOOD GAS PO2 128 mmHg (61-120); BLOOD GAS TOTAL HGB 7.5 G/DL (12.0-16.0); TEMP CORR TO 98.6
[2017-03-21 07:33] LABS: CRITICAL VALUE NO; DRAW SITE ART LINE; FIO2 40 %; OXYGEN DEVICE VENTILATOR; STAT NO; VENT SETTINGS A/C 500/20/5PEEP
[2017-03-21] MEDS: HYDROCORTISONE SOD SUCCINATE 100 MG VIAL IV PUSH SCH ×2 (07:37→14:06)
--- NOTE | 2017-03-21 07:47 | HHI.CCPN ---
Subjective Remarks/Hospital Course This is a middle-aged female with an unknown past medical history who presents after intentional overdose of medications. EMS found her with an empty bottle of verapamil. Per her initial report, she flushed these pills down the toilet, however, in the ER she may have admitted to taking some or all of them. She also endorsed taking a bottle of Lortab. She endorsed taking a bottle of valproic acid as well. Her tylenol level was 6. her VPA level was 17. EMS said they found empty bottles of verapamil, lortab, methodone, and valproic acid. The patient refuses to answer questions about her medical history or what pills she took. She is arousable but somnolent, but refusing to cooperate. In the emergency department she was given 4gm CaCl, 3 mg glucagon, epinephrine, started on a levophed drip, and then started on high dose insulin therapy at 50 units/hr (1 unit/kg/hr). When I initially evaluated the patient, she was protecting her airway, however, once she arrived to the ICU, she became nauseated and started vomiting, with her somnolence she was no longer protecting her airway and she was emergently intubated. I placed arterial and central lines. we started vasopressin. we increased her insulin drip to 150 units/hr. I discussed the case with poison control who recommended against activated charcoal at this time. they recommended drawing serum osms which we have done. Subjective: 03/21: Acute events overnight the patient severely hypoglycemic, on insulin infusion at 500 units an hour which was discontinued at approximately 3 AM. The patient was started on D5 W2 200 cc/hour, and remained on glucagon 3mg/hr. The patient's blood glucose level was noted to be in the still in the 60s the patient received 0.5 amp of D50, with subsequent elevation of blood glucose level to 180 g/dl. Poison control notified at 7:30, the patient was resumed on insulin 1 unit/kilo/hour for a total of 50 units/hour, the patient continues on D5 at 200 cc/hour with every 30 minute monitoring. Guy-Synephrine has been discontinued since 3 AM the patient continues on norepinephrine and vasopressin for vasopressor support. Objective Vital Signs Date Time Temp Pulse Resp B/P (MAP) Pulse Ox O2 Delivery O2 Flow Rate FiO2 03/21/17 04:18 100 40 03/21/17 00:39 97 135/63 03/20/17 20:00 97.8 20 03/20/17 09:45 Nasal Cannula 1.00 Result Diagram: 03/21/17 0350 03/21/17 0350 Other Results Laboratory Tests Test 03/20/17 09:40 03/20/17 11:19 Blood Gas Puncture Site ART LINE RT BRACHIAL Blood Gas Patient Temperature 98.6 98.6 Blood Gas HCO3 15 mmol/L (22-26) 16 mmol/L (22-26) Blood Gas Base Excess -9.1 mmol/L (-2-2) -8.9 mmol/L (-2-2) Blood Gas Oxygen Saturation 95 % (90-100) 96 % (90-100) Arterial Blood pH 7.40 (7.380-7.420) 7.30 (7.380-7.420) Arterial Blood Partial Pressure CO2 24 mmHg (38-42) 34 mmHg (38-42) Arterial Blood Partial Pressure O2 109 mmHg (61-120) 150 mmHg (61-120) Arterial Blood Oxygen Content 11.7 Vol % (12.0-20.0) 12.1 Vol % (12.0-20.0) Arterial Blood Carboxyhemoglobin 2.4 % (0-4) 1.7 % (0-4) Arterial Blood Methemoglobin 0.9 % (0-2) 1.1 % (0-2) Blood Gas Hemoglobin 8.6 G/DL (12.0-16.0) 8.7 G/DL (12.0-16.0) Oxygen Delivery Device NASAL CANNULA VENTILATOR Blood Gas Liter Flow 1 L/M Blood Gas Ventilator Setting A/C 500/20/5PEEP Blood Gas Inspired Oxygen 40 % Imaging Last Impressions Chest X-Ray 03/20/17 0650 Signed Impressions: Service Date/Time: Monday, March 20, 2017 07:03 - CONCLUSION: No acute cardiopulmonary process. Wayne Hensley MD Last Impressions Chest X-Ray 03/20/17 0650 Signed Impressions: Service Date/Time: Monday, March 20, 2017 07:03 - CONCLUSION: No acute cardiopulmonary process. Wayne Hensley MD Objective Remarks GENERAL: Well-developed well-nourished ,critically ill-appearing intubated sedated female SKIN: Warm and dry. HEAD: Atraumatic. Normocephalic. EYES: Pupils equal and round. No scleral icterus. Noted scleral edema. No injection or drainage. ENT: No nasal bleeding or discharge. Mucous membranes pink and moist. NECK: Trachea midline. No JVD. Orotracheal intubated CARDIOVASCULAR: Normal rate, regular rhythm. RESPIRATORY: Mechanical ventilation synchronized No accessory muscle use. Clear to auscultation. Breath sounds equal bilaterally. GASTROINTESTINAL: Abdomen soft, non-tender, nondistended. No guarding. OGT to LIWS MUSCULOSKELETAL: Extremities without clubbing, cyanosis, or edema. No obvious deformities. NEUROLOGICAL:RASS -3. Spontaneous movement of extremities 4, does not all commands Urinary Catheter: Yes Assessment to: Continue [place] insert reason: Measure Accurate Output Date of Insertion: Mar 20, 2017 Vascular Central Line Catheter: Yes Date of Insertion: Mar 20, 2017 Line: Central Venous Catheter Side: Left Location: Subclavian Reason for Continuation His active medications A/P Assessment and Plan Assessment: middle-aged female with intentional overdose of suspected Verapamil , methadone, valproic acid and possibly lortab overdose. Her hemodynamics are consistent with calcium channel herber overdose. I have had multiple conversations with poison control this morning. They recommend insulin drip as high as 10 units/kg/hr and a glucagon drip around 3-5 mg/hr. They also recommend serial q4h K, VPA, ammonia levels. The patient is now in multi-organ system failure secondary to her toxic overdose and remains critically ill in decompensating hemodynamic collapse. Plan by systems: Neurologic: Suspected valproic acid overdose Toxic encephalopathy Suspected Lortab overdose Suicide attempt - Frequent neuro checks - serial ammonia levels - versed drip for RASS goal -2 Respiratory: Acute hypoxic and hypercarbic respiratory failure - Secondary to overdose - No weaning of mechanical ventilation until mental status improves and shock improves - wean fio2 for spo2 > 92% - vent bundle, hob at 30 degrees, nebs -Monitor ABGs Cardiovascular: Calcium channel herber overdose Hemodynamic collapse secondary to overdose Mixed cardiogenic/distributive shock secondary to overdose - Insulin infusion discontinued at 3 AM, the contrary to significant refractory hypoglycemia. Insulin infusion reinitiated at 1 unit/kilo/hour @ 7am-discussed with poison control - glucagon at 3 mg/hr - levophed at 2 mcg/min - vasopressin at 0.04 units/min -Maintain goal MAP > 65 mmHg-phenylephrine discontinued at 03/20/3 AM Renal: Acute kidney injury -- Strict I/Os - Secondary to hemodynamic collapse - Continue [place] FEN/GI: Acute protein calorie malnutrition - moderate Life-threatening hypokalemia Hyperammonemia - serial ammonia levels - aggressive replacement of K. at Poison control's recommendation, will tolerate permissive hypokalemia, however, need to keep serum level at least around 3, currently 2.7 - We'll begin trickle feeds Jevity 1.5- 10cc/hr - daily bmp Heme/ID: Anemia- unknown cause - hgb > 7. will monitor. no signs of active bleeding. may likely be from iron deficiency or critical illness - transfuse for hgb < 7. - Follow-up urine culture- NGTD Endocrine: High-dose insulin therapy High-dose glucagon infusion - serial q30m glucose monitoring -- SSI Prophylaxis: GI Prophylaxis Pepcid IV DVT Prophylaxis -- SCDs Lovenox Lines: - 03/20 right radial art line - 03/20 left SC TLC - [place] Dispo: Remain in the ICU. This patient remains critically ill with one or more organ systems which are or may become a threat to life. I have spent in excess of 60 minutes discontinuously in the care and management of this patient. This time is exclusive of procedures, and includes, but is not limited to, evaluation of the patient, review of the medical record, discussions with family, consultants, nursing staff, or respiratory therapy, and documentation in the medical record. 03/21-plan for poison control to continue insulin infusion greater than 24 hours per MD Freddy (Poison Control), close monitoring. Continue to wean vasopressors as tolerated. Begin trickle feeds. Discussed with Esmer Fernandez (stepmother) and updated her on patient status. [phone]. Physician Nancy Pimentel MD Mar 21, 2017 07:47
[2017-03-21 08:19] LABS: MAGNESIUM 0.8 MG/DL (1.5-2.5)
[2017-03-21] MEDS: FAMOTIDINE 20 MG/2 ML VIAL IV PUSH SCH (08:19)
[2017-03-21] MEDS: DOCUSATE SODIUM 50 MG/SENNA 8.6 MG TAB PO SCH (08:19)
[2017-03-21] MEDS: ENOXAPARIN SODIUM 40 MG/0.4 ML SYRINGE SQ SCH (08:19)
[2017-03-21] MEDS: MULTIVITAMIN TAB PO SCH (08:19)
[2017-03-21 08:25] LABS: BHCG SCREEN QUALITATIVE LESS THAN 1 MIU/ML (0-5)
[2017-03-21] MEDS: DEXTROSE 5% IN WATE 1000ML INJ 1,000 ML IV SCH ×2 (10:00→15:08)
[2017-03-21] MEDS: POTASSIUM PHOSPHATE INJ 30 MMOL in SODIUM CHLOR 0.9% 250 ML INJ 250 ML IV PRN (11:25)
[2017-03-21] MEDS: DEXTROSE 20% IV SCH ×2 (14:51→16:54)
[2017-03-21 16:40] LABS: MAGNESIUM 1.6 MG/DL (1.5-2.5); POTASSIUM 3.9 MEQ/L (3.5-5.1)
[2017-03-21] MEDS ORDERED: DEXTROSE 20% IV SCH (21:45)
[2017-03-21] MEDS ORDERED: WATER IV SCH (21:45)
[2017-03-22] VITALS (19 sets, daily range): BP systolic 111–170; BP diastolic 61–85; PULSE 70–95; RESP 20–25; TEMP 98.8–99.5; O2SAT 94–100
[2017-03-22] LABS: POTASSIUM 3.8 MEQ/L (3.5-5.1)
[2017-03-22] MEDS: MIDAZOLAM 100 MG/NS 100 ML DRIP Premix IV PRN ×3 (01:23→22:26)
[2017-03-22] MEDS: WATER IV SCH ×4 (01:24→06:21)
[2017-03-22] MEDS: DEXTROSE 5% IV SCH ×4 (01:24→06:21)
[2017-03-22] MEDS: GLUCAGON IV SCH ×4 (01:24→06:21)
[2017-03-22] MEDS: HYDROCORTISONE SOD SUCCINATE 100 MG VIAL IV PUSH SCH ×3 (01:31→20:33)
[2017-03-22] MEDS: FAMOTIDINE 20 MG/2 ML VIAL IV PUSH SCH ×3 (01:31→20:33)
[2017-03-22] MEDS: DOCUSATE SODIUM 50 MG/SENNA 8.6 MG TAB PO SCH ×3 (01:31→20:33)
--- NOTE | 2017-03-22 05:01 | RADRPT ---
EXAM DATE/TIME: 03/22/2017 03:57 [facility] COMPARISON: CHEST SINGLE AP, March 20, 2017, 10:41. INDICATIONS : Shortness of breath, possible pulmonary disease. MEDICAL HISTORY : None. SURGICAL HISTORY : None. ENCOUNTER: Subsequent ACUITY: 3 days PAIN SCORE: Non-responsive. LOCATION: Bilateral chest FINDINGS: A single portable frontal view of the chest shows the tip of endotracheal tube 4 cm cephalad to the c megha. Left subclavian central line. Nasogastric tube coiled in the stomach. Bibasilar intra-alveolar infiltrates are more pronounced in the prior study. No effusions. Heart is normal in size. CONCLUSION: Worsening bibasilar infiltrates. Tico Helm Jr., MD on March 22, 2017 at 4:59 Board Certified Radiologist. This report was verified electronically.
[2017-03-22] MEDS: THIAMINE INJ 100 MG in SODIUM CHLORIDE 0.9% INJ 100 ML IV SCH (05:24)
[2017-03-22 05:38] LABS: ALKALINE PHOSPHATASE 76 U/L (45-117); ALT (GPT) 19 U/L (10-53); ANION GAP 8 MEQ/L (5-15); AST (GOT) 27 U/L (15-37); AUTOMATED NEUTROPHIL # 26.5 TH/MM3 (1.8-7.7); BASOPHIL % 0.1 % (0.0-2.0); BICARBONATE 21.6 MEQ/L (21.0-32.0); BLOOD UREA NITROGEN 7 MG/DL (7-18); CHLORIDE 99 MEQ/L (98-107); GLOMERULAR FILTRATION RATE 158 ML/MIN (>89); HEMO FLAGS DIFF FINAL; LYMPH % 2.3 % (9.0-44.0); LYMPHOCYTE # 0.7 TH/MM3 (1.0-4.8); MEAN CELL VOLUME 74.9 FL (80.0-100.0); MEAN CORPUSCULAR HEMOGLOBIN 23.3 PG (27.0-34.0); MEAN CORPUSCULAR HGB CONC 31.1 % (32.0-36.0); MONO % 2.3 % (0.0-8.0); NEUT % 95.3 % (16.0-70.0); PLATELET COUNT 322 TH/MM3 (150-450); POTASSIUM 3.5 MEQ/L (3.5-5.1); RED BLOOD COUNT 4.01 MIL/MM3 (4.00-5.30); RED CELL DISTRIBUTION WIDTH 19.8 % (11.6-17.2); SODIUM (NA) 129 MEQ/L (136-145); TOTAL BILIRUBIN ADULT 0.3 MG/DL (0.2-1.0); WHITE BLOOD COUNT 27.8 TH/MM3 (4.0-11.0)
[2017-03-22] MEDS: ENOXAPARIN SODIUM 40 MG/0.4 ML SYRINGE SQ SCH (08:24)
[2017-03-22] MEDS: MULTIVITAMIN TAB PO SCH (08:24)
[2017-03-22] MEDS ORDERED: DEXTROSE IV SCH ×2 (09:00)
[2017-03-22] MEDS ORDERED: WAT IV SCH ×2 (09:00)
[2017-03-22] MEDS ORDERED: [UNRECOGNIZED DRUG - OTHER] IV SCH ×2 (09:00)
[2017-03-22] MEDS ORDERED: SODIUM CHLORIDE IV SCH ×2 (09:00)
[2017-03-22] MEDS: POTASSIUM PHOSPHATE INJ 30 MMOL in SODIUM CHLOR 0.9% 250 ML INJ 250 ML IV PRN (09:36)
[2017-03-22] MEDS: PROPOFOL 1000 MG/100 ML INJ 100 ML IV PRN ×2 (11:15→18:22)
--- NOTE | 2017-03-22 14:10 | HHI.CCPN ---
Subjective Remarks/Hospital Course This is a middle-aged female with an unknown past medical history who presents after intentional overdose of medications. EMS found her with an empty bottle of verapamil. Per her initial report, she flushed these pills down the toilet, however, in the ER she may have admitted to taking some or all of them. She also endorsed taking a bottle of Lortab. She endorsed taking a bottle of valproic acid as well. Her tylenol level was 6. her VPA level was 17. EMS said they found empty bottles of verapamil, lortab, methodone, and valproic acid. The patient refuses to answer questions about her medical history or what pills she took. She is arousable but somnolent, but refusing to cooperate. In the emergency department she was given 4gm CaCl, 3 mg glucagon, epinephrine, started on a levophed drip, and then started on high dose insulin therapy at 50 units/hr (1 unit/kg/hr). When I initially evaluated the patient, she was protecting her airway, however, once she arrived to the ICU, she became nauseated and started vomiting, with her somnolence she was no longer protecting her airway and she was emergently intubated. I placed arterial and central lines. we started vasopressin. we increased her insulin drip to 150 units/hr. I discussed the case with poison control who recommended against activated charcoal at this time. they recommended drawing serum osms which we have done. Subjective: 03/21: Acute events overnight the patient severely hypoglycemic, on insulin infusion at 500 units an hour which was discontinued at approximately 3 AM. The patient was started on D5 W2 200 cc/hour, and remained on glucagon 3mg/hr. The patient's blood glucose level was noted to be in the still in the 60s the patient received 0.5 amp of D50, with subsequent elevation of blood glucose level to 180 g/dl. Poison control notified at 7:30, the patient was resumed on insulin 1 unit/kilo/hour for a total of 50 units/hour, the patient continues on D5 at 200 cc/hour with every 30 minute monitoring. Guy-Synephrine has been discontinued since 3 AM the patient continues on norepinephrine and vasopressin for vasopressor support. 03/22: Tmax 99.2. The patient continued over the last 24 hours to be hypoglycemic requiring the 20 infusion with titration to maintain a glucose level. This a.m. the patient's glucose level elevated D20W titration decrease. Currently D20W off, and close monitoring every 30 mins. Glucagon discontinued .The patient vacation yielding extreme agitation. The patient continues now on Versed and propofol with goals to wean Versed infusion off. Concern for aspiration based on chest x-ray reviewed today patient started on Levaquin antibiotic. Objective Vital Signs Date Time Temp Pulse Resp B/P (MAP) Pulse Ox O2 Delivery O2 Flow Rate FiO2 03/22/17 12:00 40 03/22/17 11:10 96 03/22/17 10:00 95 03/22/17 08:00 99.0 24 135/72 (93) 142/75 (97) 03/20/17 09:45 Nasal Cannula 1.00 Intake and Output 03/22/17 03/22/17 03/23/17 08:00 16:00 00:00 Intake Total 1506 ml 224 ml Output Total 3400 ml 2300 ml Balance -1894 ml -2076 ml Result Diagram: 03/22/17 0500 03/22/17 0500 Other Results Microbiology Date/Time Source Procedure Growth Status 03/20/17 07:20 Urine Catheterized Urine Urine Culture - Final NO GROWTH IN 48 HOURS. Complete Imaging Last Impressions Chest X-Ray 03/20/17 0650 Signed Impressions: Service Date/Time: Monday, March 20, 2017 07:03 - CONCLUSION: No acute cardiopulmonary process. Wayne Hensley MD Last Impressions Chest X-Ray 03/20/17 0650 Signed Impressions: Service Date/Time: Monday, March 20, 2017 07:03 - CONCLUSION: No acute cardiopulmonary process. Wayne Hensley MD Objective Remarks GENERAL: Well-developed well-nourished ,critically ill-appearing intubated sedated female SKIN: Warm and dry. HEAD: Atraumatic. Normocephalic. EYES: Pupils equal and round. No scleral icterus. Noted scleral edema. No injection or drainage. ENT: No nasal bleeding or discharge. Mucous membranes pink and moist. NECK: Trachea midline. No JVD. Orotracheal intubated CARDIOVASCULAR: Normal rate, regular rhythm. RESPIRATORY: Mechanical ventilation synchronized No accessory muscle use. Clear to auscultation. Breath sounds equal bilaterally. GASTROINTESTINAL: Abdomen soft, non-tender, nondistended. No guarding. OGT to LIWS MUSCULOSKELETAL: Extremities without clubbing, cyanosis, or edema. No obvious deformities. NEUROLOGICAL:RASS -3. Agitation .Spontaneous movement of extremities 4, does not all commands Date of Insertion: Mar 20, 2017 Date of Insertion: Mar 20, 2017 Line: Central Venous Catheter Side: Left Location: Subclavian A/P Assessment and Plan Assessment: middle-aged female with intentional overdose of suspected Verapamil , methadone, valproic acid and possibly lortab overdose. Her hemodynamics are consistent with calcium channel herber overdose. Continued contact with poison control. Patient now hemodynamically stable, not requiring vasopressor support at this time. However has been severely hypoglycemic, now hyponatremic. Prognosis remains guarded at this time. Plan by systems: Neurologic: Suspected valproic acid overdose Toxic encephalopathy Suspected Lortab overdose Suicide attempt - Frequent neuro checks - serial ammonia levels - versed and propofol infusion for RASS goal -2 -03/22 repeat Depakote level Respiratory: Acute hypoxic and hypercarbic respiratory failure Probable aspiration pneumonia - Secondary to overdose - Daily sedation vacation, CPAP trials as tolerated - wean fio2 for spo2 > 92% - vent bundle, hob at 30 degrees, nebs -Monitor ABGs -03/22 chest x-ray worsening increasing infiltrates, possible aspiration- antibiotics see below Cardiovascular: Calcium channel herber overdose Hemodynamic collapse secondary to overdose Mixed cardiogenic/distributive shock secondary to overdose - Insulin infusion discontinued at 3 AM, the contrary to significant refractory hypoglycemia. Insulin infusion reinitiated at 1 unit/kilo/hour @ 7am-discussed with poison control - glucagon at 3 mg/hr discontinued 03/22 - levophed at 2 mcg/min discontinued 03/20 - vasopressin at 0.04 units/min discontinued 03/21 -Maintain goal MAP > 65 mmHg-phenylephrine discontinued at 03/20/3 AM Renal: Acute kidney injury -- Strict I/Os - Secondary to hemodynamic collapse - Continue [place] FEN/GI: Acute protein calorie malnutrition - moderate Life-threatening hypokalemia Hyperammonemia Hypoglycemia Hyponatremia - serial ammonia levels - aggressive replacement of K. at Poison control's recommendation, will tolerate permissive hypokalemia, however, need to keep serum level at least around 3, currently 2.7 - We'll begin trickle feeds Jevity 1.5- 10cc/hr-increase to goal rate of 30 cc/ hour - daily bmp -Change IVF to half-normal saline -Monitor serum sodium levels Heme/ID: Anemia- unknown cause - hgb > 7. will monitor. no signs of active bleeding. may likely be from iron deficiency or critical illness - transfuse for hgb < 7. - Follow-up urine culture- NGTD -03/22 Levaquin 500 mg/day and Atrezonam -03/22 Obtain sputum culture follow-up results Endocrine: High-dose insulin therapy-resolved High-dose glucagon infusion-resolved - Glucose monitoring per ICU protocol -- SSI Prophylaxis: GI Prophylaxis Pepcid IV DVT Prophylaxis -- SCDs Lovenox Lines: - 03/20 right radial art line - 03/20 left SC TLC - [place] Dispo: Remain in the ICU. This patient remains critically ill with one or more organ systems which are or may become a threat to life. I have spent in excess of 60 minutes discontinuously in the care and management of this patient. This time is exclusive of procedures, and includes, but is not limited to, evaluation of the patient, review of the medical record, discussions with family, consultants, nursing staff, or respiratory therapy, and documentation in the medical record. 03/22: Follow-up repeat Depakote levels per recommendations of poison control center. Discussed with Esmer Fernandez (stepmother) and updated her on patient status. [phone]. Physician Nancy Pimentel MD Mar 22, 2017 14:10
[2017-03-22] MEDS: LEVOFLOXACIN 500 MG PREMIX INJ 100 ML IV SCH (14:20)
[2017-03-22] MEDS ORDERED: DEXTROSE 50% IN WATER 50 ML VIAL(D50) IV PRN (18:45)
[2017-03-22] MEDS ORDERED: GLUCAGON 1 MG/ML VIAL OTHER PRN (18:45)
[2017-03-22] MEDS: AZTREONAM INJ 1,000 MG in SODIUM CHLORIDE 0.9% INJ 100 ML IV SCH (20:33)
[2017-03-22] MEDS: INSULIN ASPART SUPPLEMENTAL SCALE SQ SCH (21:00)
[2017-03-23] VITALS (21 sets, daily range): BP systolic 101–155; BP diastolic 74–95; PULSE 54–97; RESP 16–26; TEMP 97.8–98.7; O2SAT 94–100
[2017-03-23] MEDS: CHLORHEXIDINE GLUCONATE 2 % 1 PACK (2 CLOTHS) TOP SCH (04:00)
[2017-03-23] MEDS: PROPOFOL 1000 MG/100 ML INJ 100 ML IV PRN ×2 (04:00→08:20)
[2017-03-23] MEDS: AZTREONAM INJ 1,000 MG in SODIUM CHLORIDE 0.9% INJ 100 ML IV SCH ×3 (04:01→19:30)
[2017-03-23] MEDS: HYDROCORTISONE SOD SUCCINATE 100 MG VIAL IV PUSH SCH ×2 (05:08→19:30)
--- NOTE | 2017-03-23 05:15 | RADRPT ---
EXAM DATE/TIME: 03/23/2017 04:33 [facility] COMPARISON: CHEST SINGLE AP, March 22, 2017, 3:57. INDICATIONS : Short of breath. MEDICAL HISTORY : None. SURGICAL HISTORY : None. ENCOUNTER: Subsequent ACUITY: 4 - 6 days PAIN SCORE: 0/10 LOCATION: Bilateral chest FINDINGS: A single portable frontal view of the chest shows bibasilar pulmonary infiltrates more pronounced on the left. No discrete effusion is observed. The infiltrates are stable to slightly improved from the prior study. Heart is normal in size. Tip of the endotracheal tube 4 cm proximal to su. Multiple EKG leads overlap the region of the stomach obscuring the tip of the nasogastric tube. It is felt coi led within the stomach and projecting off the inferior margin of the film. Left subclavian central li ne. No pneumothorax. CONCLUSION: Bibasilar pulmonary infiltrates somewhat improved from the prior study. Tico Helm Jr., MD on March 23, 2017 at 5:13 Board Certified Radiologist. This report was verified electronically.
[2017-03-23 05:18] LABS: HEMATOCRIT 27.1 % (35.0-46.0); MEAN CELL VOLUME 74.9 FL (80.0-100.0); MEAN CORPUSCULAR HEMOGLOBIN 23.9 PG (27.0-34.0); PLATELET COUNT 283 TH/MM3 (150-450); RED BLOOD COUNT 3.62 MIL/MM3 (4.00-5.30); RED CELL DISTRIBUTION WIDTH 20.3 % (11.6-17.2); REVIEW FLAG FINAL; WHITE BLOOD COUNT 13.4 TH/MM3 (4.0-11.0)
[2017-03-23 05:46] LABS: BICARBONATE 25.2 MEQ/L (21.0-32.0); MAGNESIUM 1.7 MG/DL (1.5-2.5); POTASSIUM 4.4 MEQ/L (3.5-5.1)
[2017-03-23 05:53] LABS: BLOOD GAS BASE EXCESS -1.1 mmol/L (-2-2); BLOOD GAS CARBOXYHEMOGLOBIN 1.5 % (0-4); BLOOD GAS HCO3 22 mmol/L (22-26); BLOOD GAS METHEMOGLOBIN 0.9 % (0-2); BLOOD GAS O2 HGB SATURATION 96 % (90-100); BLOOD GAS OXYGEN CONTENT 12.7 Vol % (12.0-20.0); BLOOD GAS PCO2 29 mmHg (38-42); BLOOD GAS PO2 110 mmHg (61-120); BLOOD GAS TOTAL HGB 9.3 G/DL (12.0-16.0); TEMP CORR TO 98.6
[2017-03-23 05:54] LABS: CRITICAL VALUE NO; DRAW SITE RT RADIAL; FIO2 40 %; NUMBER OF ARTERIAL PUNCTURES 1; OXYGEN DEVICE VENTILATOR; STAT NO; ULNAR PULSE PRESENT; VENT SETTINGS AC20/500/+5
[2017-03-23] MEDS: INSULIN ASPART SUPPLEMENTAL SCALE SQ SCH ×4 (08:00→21:00)
[2017-03-23] MEDS: MULTIVITAMIN TAB PO SCH (08:19)
[2017-03-23] MEDS: ENOXAPARIN SODIUM 40 MG/0.4 ML SYRINGE SQ SCH (08:19)
[2017-03-23] MEDS: THIAMINE HCL 100 MG TAB PO SCH (08:19)
[2017-03-23] MEDS: DOCUSATE SODIUM 50 MG/SENNA 8.6 MG TAB PO SCH ×2 (08:19→19:30)
[2017-03-23] MEDS: FAMOTIDINE 20 MG/2 ML VIAL IV PUSH SCH ×2 (08:19→19:29)
--- NOTE | 2017-03-23 13:14 | HHI.CCPN ---
Subjective Remarks/Hospital Course This is a middle-aged female with an unknown past medical history who presents after intentional overdose of medications. EMS found her with an empty bottle of verapamil. Per her initial report, she flushed these pills down the toilet, however, in the ER she may have admitted to taking some or all of them. She also endorsed taking a bottle of Lortab. She endorsed taking a bottle of valproic acid as well. Her tylenol level was 6. her VPA level was 17. EMS said they found empty bottles of verapamil, lortab, methodone, and valproic acid. The patient refuses to answer questions about her medical history or what pills she took. She is arousable but somnolent, but refusing to cooperate. In the emergency department she was given 4gm CaCl, 3 mg glucagon, epinephrine, started on a levophed drip, and then started on high dose insulin therapy at 50 units/hr (1 unit/kg/hr). When I initially evaluated the patient, she was protecting her airway, however, once she arrived to the ICU, she became nauseated and started vomiting, with her somnolence she was no longer protecting her airway and she was emergently intubated. I placed arterial and central lines. we started vasopressin. we increased her insulin drip to 150 units/hr. I discussed the case with poison control who recommended against activated charcoal at this time. they recommended drawing serum osms which we have done. Subjective: 03/21: Acute events overnight the patient severely hypoglycemic, on insulin infusion at 500 units an hour which was discontinued at approximately 3 AM. The patient was started on D5 W2 200 cc/hour, and remained on glucagon 3mg/hr. The patient's blood glucose level was noted to be in the still in the 60s the patient received 0.5 amp of D50, with subsequent elevation of blood glucose level to 180 g/dl. Poison control notified at 7:30, the patient was resumed on insulin 1 unit/kilo/hour for a total of 50 units/hour, the patient continues on D5 at 200 cc/hour with every 30 minute monitoring. Guy-Synephrine has been discontinued since 3 AM the patient continues on norepinephrine and vasopressin for vasopressor support. 03/22: Tmax 99.2. The patient continued over the last 24 hours to be hypoglycemic requiring the 20 infusion with titration to maintain a glucose level. This a.m. the patient's glucose level elevated D20W titration decrease. Currently D20W off, and close monitoring every 30 mins. Glucagon discontinued .The patient vacation yielding extreme agitation. The patient continues now on Versed and propofol with goals to wean Versed infusion off. Concern for aspiration based on chest x-ray reviewed today patient started on Levaquin antibiotic. 03/23: No acute events overnight. Attempt CPAP trials this a.m. patient tolerated for approximately 1 hour. Leukocytosis declining with addition of Levaquin and Atrezonam. Patient remains GCS 11 T. Alert and responsive, follows commands. Objective Vital Signs Date Time Temp Pulse Resp B/P (MAP) Pulse Ox O2 Delivery O2 Flow Rate FiO2 03/23/17 11:19 94 50 03/23/17 10:00 95 03/23/17 08:00 98.1 20 132/75 (94) 101/77 (85) 03/20/17 09:45 Nasal Cannula 1.00 Intake and Output 03/23/17 03/23/17 03/24/17 08:00 16:00 00:00 Intake Total 625 ml Output Total 850 ml Balance -225 ml Result Diagram: 03/23/17 0455 03/23/17 0455 Other Results Laboratory Tests Test 03/23/17 05:37 Blood Gas Puncture Site RT RADIAL Blood Gas Patient Temperature 98.6 Blood Gas HCO3 22 mmol/L (22-26) Blood Gas Base Excess -1.1 mmol/L (-2-2) Blood Gas Oxygen Saturation 96 % (90-100) Arterial Blood pH 7.49 (7.380-7.420) Arterial Blood Partial Pressure CO2 29 mmHg (38-42) Arterial Blood Partial Pressure O2 110 mmHg (61-120) Arterial Blood Oxygen Content 12.7 Vol % (12.0-20.0) Arterial Blood Carboxyhemoglobin 1.5 % (0-4) Arterial Blood Methemoglobin 0.9 % (0-2) Blood Gas Hemoglobin 9.3 G/DL (12.0-16.0) Oxygen Delivery Device VENTILATOR Blood Gas Ventilator Setting AC20/500/+5 Blood Gas Inspired Oxygen 40 % Imaging Last Impressions Chest X-Ray 03/20/17 0650 Signed Impressions: Service Date/Time: Monday, March 20, 2017 07:03 - CONCLUSION: No acute cardiopulmonary process. Wayne Hensley MD Last Impressions Chest X-Ray 03/20/17 0650 Signed Impressions: Service Date/Time: Monday, March 20, 2017 07:03 - CONCLUSION: No acute cardiopulmonary process. Wayne Hensley MD Objective Remarks GENERAL: Well-developed well-nourished ,intubated female, responding to yes and no questions SKIN: Warm and dry. HEAD: Atraumatic. Normocephalic. EYES: Pupils equal and round. No scleral icterus. Noted scleral edema. No injection or drainage. ENT: No nasal bleeding or discharge. Mucous membranes pink and moist. NECK: Trachea midline. No JVD. Orotracheal intubated CARDIOVASCULAR: Normal rate, regular rhythm. RESPIRATORY: Mechanical ventilation synchronized No accessory muscle use. Clear to auscultation. Breath sounds equal bilaterally. GASTROINTESTINAL: Abdomen soft, non-tender, nondistended. No guarding. OGT to LIWS MUSCULOSKELETAL: Extremities without clubbing, cyanosis, or edema. No obvious deformities. NEUROLOGICAL:RASS -2.Spontaneous movement of extremities 4, follows commands. Motor strength 5/5 B/L upper and lower extremities Date of Insertion: Mar 20, 2017 Date of Insertion: Mar 20, 2017 Line: Central Venous Catheter Side: Left Location: Subclavian A/P Assessment and Plan Assessment: middle-aged female with intentional overdose of suspected Verapamil , methadone, valproic acid and possibly lortab overdose. Her hemodynamics are consistent with calcium channel herber overdose. Continued contact with poison control. Patient now hemodynamically stable, not requiring vasopressor support at this time. However has been severely hypoglycemic, now hyponatremic. Prognosis remains guarded at this time. Plan by systems: Neurologic: Suspected valproic acid overdose Toxic encephalopathy Suspected Lortab overdose Suicide attempt - Frequent neuro checks - Will dc Propofol and change to Precedex infusion for RASS goal -2 -03/22 repeat Depakote level- 16 Respiratory: Acute hypoxic and hypercarbic respiratory failure Probable aspiration pneumonia - Secondary to overdose - Daily sedation vacation, CPAP trials as tolerated -Continue CPAP trial - wean fio2 for spo2 > 92% - vent bundle, hob at 30 degrees, nebs -Monitor ABGs -03/23 chest x-ray improvement B/L infiltrates, possible aspiration-antibiotics see below Hydrocortisone 100 mg every 8 hours begin weaning process today to every 12 hours Cardiovascular: Calcium channel herber overdose Hemodynamic collapse secondary to overdose-resolved Mixed cardiogenic/distributive shock secondary to overdose-resolved - Insulin infusion discontinued at 3 AM, the contrary to significant refractory hypoglycemia. Insulin infusion reinitiated at 1 unit/kilo/hour @ 7am-discussed with poison control - glucagon at 3 mg/hr discontinued 03/22 - levophed at 2 mcg/min discontinued 03/20 - vasopressin at 0.04 units/min discontinued 03/21 -Maintain goal MAP > 65 mmHg-phenylephrine discontinued at 03/20/3 AM Renal: Acute kidney injury-resolved -- Strict I/Os - Secondary to hemodynamic collapse - Continue [place] FEN/GI: Acute protein calorie malnutrition - moderate Life-threatening hypokalemia Hyperammonemia Hypoglycemia-resolved Hyponatremia-resolved - serial ammonia levels - aggressive replacement of K. at Poison control's recommendation, will tolerate permissive hypokalemia, however, need to keep serum level at least around 3, currently 2.7 - Jevity 1.5- goal rate of 30 cc/hour, minimal residual - daily bmp Heme/ID: Anemia- unknown cause - hgb > 7. will monitor. no signs of active bleeding. may likely be from iron deficiency or critical illness - transfuse for hgb < 7. - Follow-up urine culture- NGTD -03/22 Levaquin 500 mg/day and Atrezonam -03/22 Obtain sputum culture follow-up results Endocrine: High-dose insulin therapy-resolved High-dose glucagon infusion-resolved - Glucose monitoring per ICU protocol -- SSI Prophylaxis: GI Prophylaxis Pepcid IV DVT Prophylaxis -- SCDs Lovenox Lines: - 03/20 right radial art line - 03/20 left SC TLC - [place] Dispo: Remain in the ICU. This patient remains critically ill with one or more organ systems which are or may become a threat to life. I have spent in excess of 30 minutes discontinuously in the care and management of this patient. This time is exclusive of procedures, and includes, but is not limited to, evaluation of the patient, review of the medical record, discussions with family, consultants, nursing staff, or respiratory therapy, and documentation in the medical record. Discussed with Esmer Fernandez (stepmother) and updated her on patient status, at bedside. Physician Nancy Pimentel MD Mar 23, 2017 13:14
[2017-03-23] MEDS: LEVOFLOXACIN 500 MG PREMIX INJ 100 ML IV SCH (14:08)
[2017-03-23 14:31] LABS: BLOOD GAS BASE EXCESS 0.3 mmol/L (-2-2); BLOOD GAS CARBOXYHEMOGLOBIN 1.6 % (0-4); BLOOD GAS HCO3 23 mmol/L (22-26); BLOOD GAS METHEMOGLOBIN 1.1 % (0-2); BLOOD GAS O2 HGB SATURATION 94 % (90-100); BLOOD GAS OXYGEN CONTENT 12.3 Vol % (12.0-20.0); BLOOD GAS PCO2 30 mmHg (38-42); BLOOD GAS PO2 80 mmHg (61-120); BLOOD GAS TOTAL HGB 9.3 G/DL (12.0-16.0); TEMP CORR TO 98.6
[2017-03-23 14:32] LABS: CRITICAL VALUE NO; DRAW SITE RT RADIAL; FIO2 40 %; NUMBER OF ARTERIAL PUNCTURES 1; OXYGEN DEVICE VENTILATOR; STAT YES; ULNAR PULSE Y; VENT SETTINGS AC/VT500/R20/P5
[2017-03-23] MEDS ORDERED: DEXMEDETOMIDINE 200 MCG/50 ML Premix IV PRN (15:00)
[2017-03-23] MEDS: DEXMEDETOMIDINE INJ 200 MCG in SODIUM CHLORIDE 0.9% INJ 48 ML IV PRN ×3 (15:44→18:16)
[2017-03-23] MEDS: DEXMEDETOMIDINE 200 MCG in NS 48 ML IV PRN (20:51)
[2017-03-24] VITALS (15 sets, daily range): BP systolic 125–170; BP diastolic 71–93; PULSE 44–65; RESP 12–23; TEMP 98–98.8; O2SAT 95–100
[2017-03-24] MEDS: DEXMEDETOMIDINE 200 MCG in NS 48 ML IV PRN ×3 (00:23→08:24)
--- NOTE | 2017-03-24 03:31 | RADRPT ---
EXAM DATE/TIME: 03/24/2017 02:42 [facility] COMPARISON: CHEST SINGLE AP, March 23, 2017, 4:33. INDICATIONS : Shortness of breath. MEDICAL HISTORY : None. SURGICAL HISTORY : None. ENCOUNTER: Subsequent ACUITY: 1 week PAIN SCORE: Non-responsive. LOCATION: Bilateral chest FINDINGS: 2 frontal views the chest show an endotracheal tube with the tip 4 cm from the su. Left subclavia n central line with the tip at the caval atrial junction. Nasogastric tube coiled within the stomach. Improvement in the bibasilar infiltrates. No effusions. Heart is normal in size. CONCLUSION: Improving but persistent bibasilar infiltrates. Tico Helm Jr., MD on March 24, 2017 at 3:27 Board Certified Radiologist. This report was verified electronically.
[2017-03-24] MEDS: CHLORHEXIDINE GLUCONATE 2 % 1 PACK (2 CLOTHS) TOP SCH ×2 (04:00→19:56)
[2017-03-24] MEDS: AZTREONAM INJ 1,000 MG in SODIUM CHLORIDE 0.9% INJ 100 ML IV SCH ×4 (04:04→19:56)
[2017-03-24 06:13] LABS: HEMATOCRIT 25.5 % (35.0-46.0); MEAN CELL VOLUME 76.1 FL (80.0-100.0); MEAN CORPUSCULAR HEMOGLOBIN 24.5 PG (27.0-34.0); MEAN CORPUSCULAR HGB CONC 32.2 % (32.0-36.0); PLATELET COUNT 238 TH/MM3 (150-450); RED BLOOD COUNT 3.35 MIL/MM3 (4.00-5.30); RED CELL DISTRIBUTION WIDTH 20.2 % (11.6-17.2); REVIEW FLAG FINAL; WHITE BLOOD COUNT 7.6 TH/MM3 (4.0-11.0)
[2017-03-24 06:31] LABS: BICARBONATE 26.2 MEQ/L (21.0-32.0); MAGNESIUM 1.7 MG/DL (1.5-2.5); POTASSIUM 3.7 MEQ/L (3.5-5.1)
[2017-03-24] MEDS: INSULIN ASPART SUPPLEMENTAL SCALE SQ SCH ×4 (08:00→19:55)
[2017-03-24] MEDS: ENOXAPARIN SODIUM 40 MG/0.4 ML SYRINGE SQ SCH (10:50)
[2017-03-24] MEDS: THIAMINE HCL 100 MG TAB PO SCH (10:50)
[2017-03-24] MEDS: DOCUSATE SODIUM 50 MG/SENNA 8.6 MG TAB PO SCH ×2 (10:50→19:56)
[2017-03-24] MEDS: MULTIVITAMIN TAB PO SCH (10:50)
[2017-03-24] MEDS: HYDROCORTISONE SOD SUCCINATE 100 MG VIAL IV PUSH SCH ×2 (10:51→19:55)
[2017-03-24] MEDS: FAMOTIDINE 20 MG/2 ML VIAL IV PUSH SCH ×2 (10:52→19:56)
--- NOTE | 2017-03-24 11:05 | HHI.CCPN ---
Subjective Remarks/Hospital Course This is a middle-aged female with an unknown past medical history who presents after intentional overdose of medications. EMS found her with an empty bottle of verapamil. Per her initial report, she flushed these pills down the toilet, however, in the ER she may have admitted to taking some or all of them. She also endorsed taking a bottle of Lortab. She endorsed taking a bottle of valproic acid as well. Her tylenol level was 6. her VPA level was 17. EMS said they found empty bottles of verapamil, lortab, methodone, and valproic acid. The patient refuses to answer questions about her medical history or what pills she took. She is arousable but somnolent, but refusing to cooperate. In the emergency department she was given 4gm CaCl, 3 mg glucagon, epinephrine, started on a levophed drip, and then started on high dose insulin therapy at 50 units/hr (1 unit/kg/hr). When I initially evaluated the patient, she was protecting her airway, however, once she arrived to the ICU, she became nauseated and started vomiting, with her somnolence she was no longer protecting her airway and she was emergently intubated. I placed arterial and central lines. we started vasopressin. we increased her insulin drip to 150 units/hr. I discussed the case with poison control who recommended against activated charcoal at this time. they recommended drawing serum osms which we have done. Subjective: 03/21: Acute events overnight the patient severely hypoglycemic, on insulin infusion at 500 units an hour which was discontinued at approximately 3 AM. The patient was started on D5 W2 200 cc/hour, and remained on glucagon 3mg/hr. The patient's blood glucose level was noted to be in the still in the 60s the patient received 0.5 amp of D50, with subsequent elevation of blood glucose level to 180 g/dl. Poison control notified at 7:30, the patient was resumed on insulin 1 unit/kilo/hour for a total of 50 units/hour, the patient continues on D5 at 200 cc/hour with every 30 minute monitoring. Guy-Synephrine has been discontinued since 3 AM the patient continues on norepinephrine and vasopressin for vasopressor support. 03/22: Tmax 99.2. The patient continued over the last 24 hours to be hypoglycemic requiring the 20 infusion with titration to maintain a glucose level. This a.m. the patient's glucose level elevated D20W titration decrease. Currently D20W off, and close monitoring every 30 mins. Glucagon discontinued .The patient vacation yielding extreme agitation. The patient continues now on Versed and propofol with goals to wean Versed infusion off. Concern for aspiration based on chest x-ray reviewed today patient started on Levaquin antibiotic. 03/23: No acute events overnight. Attempt CPAP trials this a.m. patient tolerated for approximately 1 hour. Leukocytosis declining with addition of Levaquin and Atrezonam. Patient remains GCS 11 T. Alert and responsive, follows commands. 03/24: No acute events overnight. The patient was maintained on Precedex infusion. Currently on CPAP trials with plan for extubation. Objective Vital Signs Date Time Temp Pulse Resp B/P (MAP) Pulse Ox O2 Delivery O2 Flow Rate FiO2 03/24/17 09:05 100 35 03/24/17 06:00 48 03/24/17 04:00 98.0 20 170/83 (112) 146/93 (110) 03/24/17 03:22 Ventilator 03/20/17 09:45 1.00 Intake and Output 03/24/17 03/24/17 03/25/17 08:00 16:00 00:00 Intake Total 601 ml 50 ml Output Total 800 ml Balance -199 ml 50 ml Result Diagram: 03/24/17 0445 03/24/17 0445 Other Results Laboratory Tests Test 03/23/17 14:17 Blood Gas Puncture Site RT RADIAL Blood Gas Patient Temperature 98.6 Blood Gas HCO3 23 mmol/L (22-26) Blood Gas Base Excess 0.3 mmol/L (-2-2) Blood Gas Oxygen Saturation 94 % (90-100) Arterial Blood pH 7.50 (7.380-7.420) Arterial Blood Partial Pressure CO2 30 mmHg (38-42) Arterial Blood Partial Pressure O2 80 mmHg (61-120) Arterial Blood Oxygen Content 12.3 Vol % (12.0-20.0) Arterial Blood Carboxyhemoglobin 1.6 % (0-4) Arterial Blood Methemoglobin 1.1 % (0-2) Blood Gas Hemoglobin 9.3 G/DL (12.0-16.0) Oxygen Delivery Device VENTILATOR Blood Gas Ventilator Setting AC/VT500/R20/P5 Blood Gas Inspired Oxygen 40 % Imaging Last Impressions Chest X-Ray 03/20/17 0650 Signed Impressions: Service Date/Time: Monday, March 20, 2017 07:03 - CONCLUSION: No acute cardiopulmonary process. Wayne Hensley MD Last Impressions Chest X-Ray 03/20/17 0650 Signed Impressions: Service Date/Time: Monday, March 20, 2017 07:03 - CONCLUSION: No acute cardiopulmonary process. Wayne Hensley MD Objective Remarks GENERAL: Well-developed well-nourished ,intubated female, responding to yes and no questions overweight SKIN: Warm and dry. HEAD: Atraumatic. Normocephalic. EYES: Pupils equal and round. No scleral icterus. Noted scleral edema. No injection or drainage. ENT: No nasal bleeding or discharge. Mucous membranes pink and moist. NECK: Trachea midline. No JVD. Orotracheal intubated CARDIOVASCULAR: Normal rate, regular rhythm. RESPIRATORY: Mechanical ventilation synchronized No accessory muscle use. Clear to auscultation. Breath sounds equal bilaterally. GASTROINTESTINAL: Abdomen soft, non-tender, nondistended. No guarding. OGT to LIWS MUSCULOSKELETAL: Extremities without clubbing, cyanosis, or edema. No obvious deformities. NEUROLOGICAL:RASS -1.Spontaneous movement of extremities 4, follows commands. Motor strength 5/5 B/L upper and lower extremities Date of Insertion: Mar 20, 2017 Date of Insertion: Mar 20, 2017 Line: Central Venous Catheter Side: Left Location: Subclavian A/P Assessment and Plan Assessment: middle-aged female with intentional overdose of suspected Verapamil , methadone, valproic acid and possibly lortab overdose. Her hemodynamics are consistent with calcium channel herber overdose. Continued contact with poison control. Patient now hemodynamically stable. Alert and responsive to commands Plan by systems: Neurologic: Suspected valproic acid overdose Toxic encephalopathy Suspected Lortab overdose Suicide attempt - Frequent neuro checks - Precedex infusion for RASS goal -1, previously on 1 mcg/kg/hr, now discontinued in anticipation for possible extubation -03/22 repeat Depakote level- 16 Respiratory: Acute hypoxic and hypercarbic respiratory failure Probable aspiration pneumonia - Secondary to overdose - Daily sedation vacation, CPAP trials as tolerated -Continue CPAP trial - wean fio2 for spo2 > 92% - vent bundle, hob at 30 degrees, nebs -Monitor ABGs -9/19 chest x-ray improvement B/L infiltrates, possible aspiration-antibiotics see below Hydrocortisone 100 mg every 8 hours begin weaning process today to every 12 hours 03/24-obtain SBT parameters, with plan for extubation Cardiovascular: Calcium channel herber overdose Hemodynamic collapse secondary to overdose-resolved Mixed cardiogenic/distributive shock secondary to overdose-resolved - Insulin infusion discontinued at 3 AM, the contrary to significant refractory hypoglycemia. Insulin infusion reinitiated at 1 unit/kilo/hour @ 7am-discussed with poison control - glucagon at 3 mg/hr discontinued 03/22 - levophed at 2 mcg/min discontinued 03/20 - vasopressin at 0.04 units/min discontinued 03/21 -Maintain goal MAP > 65 mmHg-phenylephrine discontinued at 03/20/3 AM Renal: Acute kidney injury-resolved -- Strict I/Os - Secondary to hemodynamic collapse - Continue [place] FEN/GI: Acute protein calorie malnutrition - moderate Life-threatening hypokalemia Hyperammonemia Hypoglycemia-resolved Hyponatremia-resolved - serial ammonia levels - aggressive replacement of K. at Poison control's recommendation, will tolerate permissive hypokalemia, however, need to keep serum level at least around 3, currently 2.7 - Jevity 1.5- goal rate of 30 cc/hour, tube feeds on hold - daily bmp Heme/ID: Anemia- unknown cause - hgb > 7. will monitor. no signs of active bleeding. may likely be from iron deficiency or critical illness - transfuse for hgb < 7. - Follow-up urine culture- NGTD -03/22 Levaquin 500 mg/day and Atrezonam -03/22 Obtain sputum culture follow-up results Endocrine: High-dose insulin therapy-resolved High-dose glucagon infusion-resolved - Glucose monitoring per ICU protocol -- SSI Prophylaxis: GI Prophylaxis Pepcid IV DVT Prophylaxis -- SCDs Lovenox Lines: - 03/20 right radial art line - 03/20 left SC TLC - [place] Dispo: Discussed with MATH PROFESSOR at bedside. Level 3 Physician Nancy Pimentel MD Mar 24, 2017 11:05
[2017-03-24 11:13] LABS: BLOOD GAS BASE EXCESS 1.5 mmol/L (-2-2); BLOOD GAS CARBOXYHEMOGLOBIN 1.4 % (0-4); BLOOD GAS HCO3 25 mmol/L (22-26); BLOOD GAS METHEMOGLOBIN 0.8 % (0-2); BLOOD GAS O2 HGB SATURATION 97 % (90-100); BLOOD GAS OXYGEN CONTENT 11.8 Vol % (12.0-20.0); BLOOD GAS PCO2 36 mmHg (38-42); BLOOD GAS PO2 140 mmHg (61-120); BLOOD GAS TOTAL HGB 8.5 G/DL (12.0-16.0); TEMP CORR TO 98.6
[2017-03-24 11:14] LABS: CRITICAL VALUE NO; DRAW SITE ART LINE; FIO2 40 %; OXYGEN DEVICE VENTILATOR; STAT YES; ULNAR PULSE PRESENT; VENT SETTINGS CPAP+5/PS+5
[2017-03-24] MEDS: LEVOFLOXACIN 500 MG PREMIX INJ 100 ML IV SCH (13:59)
[2017-03-25] VITALS (14 sets, daily range): BP systolic 113–149; BP diastolic 60–68; PULSE 50–77; RESP 17–24; TEMP 98–98.6; O2SAT 95–100
[2017-03-25] MEDS: AZTREONAM INJ 1,000 MG in SODIUM CHLORIDE 0.9% INJ 100 ML IV SCH (02:29)
--- NOTE | 2017-03-25 04:58 | RADRPT ---
EXAM DATE/TIME: 03/25/2017 03:50 [facility] COMPARISON: CHEST SINGLE AP, March 24, 2017, 2:42. INDICATIONS : Shortness of breath, possible pulmonary disease. MEDICAL HISTORY : None. SURGICAL HISTORY : None. ENCOUNTER: Subsequent ACUITY: 4 - 6 days PAIN SCORE: Non-responsive. LOCATION: Bilateral chest FINDINGS: A single portable frontal view of the chest shows interval extubation and removal of the nasogastric tube. A left subclavian central line remains. Patchy parenchymal opacity is seen involving both lung bases more pronounced on the left. These are unchanged. No effusions. Heart normal in size. CONCLUSION: 1. Interval extubation. 2. Unchanged bibasilar parenchymal opacities more pronounced on the left. Tico Helm Jr., MD on March 25, 2017 at 4:56 Board Certified Radiologist. This report was verified electronically.
[2017-03-25 06:16] LABS: HEMATOCRIT 24.6 % (35.0-46.0); MEAN CELL VOLUME 75.5 FL (80.0-100.0); MEAN CORPUSCULAR HEMOGLOBIN 24.6 PG (27.0-34.0); MEAN CORPUSCULAR HGB CONC 32.6 % (32.0-36.0); PLATELET COUNT 290 TH/MM3 (150-450); RED BLOOD COUNT 3.27 MIL/MM3 (4.00-5.30); RED CELL DISTRIBUTION WIDTH 20.2 % (11.6-17.2); REVIEW FLAG FINAL; WHITE BLOOD COUNT 8.5 TH/MM3 (4.0-11.0)
[2017-03-25 07:04] LABS: BICARBONATE 27.5 MEQ/L (21.0-32.0); MAGNESIUM 1.7 MG/DL (1.5-2.5)
[2017-03-25 07:06] LABS: POTASSIUM 2.9 MEQ/L (3.5-5.1)
--- NOTE | 2017-03-25 07:40 | PD.PSY.CON ---
Provisional Diagnosis Admission Date Mar 20, 2017 at 07:20 [place] I. Major depressive disorder, recurrent, severe, without psychosis, history of anxiety [place]. Deferred History of Present Illness Service Psychiatry Consult Requested By Reason for Consult Recent suicidal attempt Primary Care Physician Unknown HPI The patient is a 46-year-old woman, domiciled in [place] with her boyfriend, unemployed, supported by [facility], with psychiatric history of depression , anxiety, 1 previous psychiatric hospitalization, she denies previous suicidal attempts, she denies the use of substances, medical history of chronic pain, who presents after intentional overdose of medications. EMS found her with an empty bottle of verapamil. Per her initial report, she flushed these pills down the toilet, however, in the ER she may have admitted to taking some or all of them. She also endorsed taking a bottle of Lortab. She endorsed taking a bottle of valproic acid as well. VPA levels were 85. She was admitted in the ICU due to multiple organ failure,Toxic encephalopath. Suspected and valproate and calcium channel and Lortab overdose. Suicide attempt. Acute hypoxic and hypercarbic respiratory failure. Hemodynamic collapse secondary to overdose. Mixed cardiogenic/distributive shock secondary to overdose. Acute kidney injury. Consulted to psychiatry to assess overdose. Patient was seeing in the ICU. Patient is is still little sedated and lethargic with difficulty speaking due to recent extubation. Patient was able to cooperate with the evaluation. She says that she took many of her boyfriend medications. She first says that she just to 4 pills of Xanax and 4 pills of Latuda. She says they had an argument, she was drunk, became very frustrated and took many pills with the intention to . Now, patient says that he was in a moment of frustration and instability and she regretted the overdose. Patient tries to minimize the emotions behind the overdose and the overdose itself. Patient is focused in be discharged from the hospital. Obviously now she denies depressive symptoms, she says that once she stayed with her boyfriend she will be okay, "I have figure out that we just need to speak". Even though the patient denies depressive symptoms, she seems to be very vulnerable and fragile, with tears in her eyes, very distant, thoughtful. She denies suicidal and homicidal ideation at this moment, she denies visual and auditory hallucinations. Patient is oriented 3, without fluctuation of consciousness at this moment. Regarding her psychiatric history she is giving a quite contradictory information, she says that she has history of anxiety and depression, denies suicidal attempts, that she has never been hospitalized, but minutes later says that she was hospitalized once due to a suicidal attempt. She also at the beginning denies the use of psychotropics, but later on admits that she uses Xanax "and others". Review of Systems Constitutional: DENIES: Diaphoretic episodes, Fatigue, Fever, Weight gain, Weight loss, Chills, Dizziness, Change in appetite, Night Sweats Endocrine: DENIES: Abnorml menstrual pattern, Heat/cold intolerance, Polydipsia , Polyuria, Polyphagia Eyes: DENIES: Blurred vision, Diplopia, Eye inflammation, Eye pain, Vision loss , Photosensitivity, Double Vision Ears, nose, mouth, throat: DENIES: Tinnitus, Hearing loss, Vertigo, Nasal discharge, Oral lesions, Throat pain, Hoarseness, Ear Pain, Running Nose, Epistaxis, Sinus Pain, Toothache, Odynophagia Respiratory: DENIES: Apneas, Cough, Snoring, Wheezing, Hemoptysis, Sputum production, Shortness of breath Gastrointestinal: DENIES: Abdominal pain, Black stools, Bloody stools, Constipation, Diarrhea, Nausea, Vomiting, Difficulty Swallowing, Anorexia Musculoskeletal: DENIES: Joint pain, Muscle aches, Stiffness, Joint Swelling, Back pain, Neck pain Integumentary: DENIES: Abnormal pigmentation, Pruritus, Rash, Nail changes, Breast masses, Breast skin changes, Nipple discharge Hematologic/lymphatic: DENIES: Bruising, Lymphadenopathy Immunologic/allergic: DENIES: Eczema, Urticaria Neurologic: DENIES: Abnormal gait, Headache, Localized weakness, Paresthesias, Seizures, Speech Problems, Tremor, Poor Balance Psychiatric: COMPLAINS OF: Depression, Suicidal Ideation, DENIES: Anxiety, Confusion, Mood changes, Hallucinations, Agitation, Homicidal Ideation, Delusions Past Family Social History Coded Allergies: Penicillins (Verified Allergy, Intermediate, 03/20/17) Unable to Obtain Active Prescriptions or Reported Meds Current Medications Medications (Trade) Dose Ordered Sig/Hector Route Start Time Stop Time Status Last Admin (NS Flush) 2 ml UNSCH PRN IV FLUSH 03/20/17 07:00 (D50w (Vial) Inj) 50 ml UNSCH PRN IV PUSH 03/20/17 07:15 (Brethine Inj) 1 mg UNSCH PRN SQ 03/20/17 07:45 (Mag-Ox) 800 mg UNSCH PRN PO 03/20/17 08:00 Magnesium Sulfate 4 gm/Sodium Chloride 100 ml @ 50 mls/hr UNSCH PRN IV 03/20/17 08:00 03/21/17 11:25 Magnesium Sulfate 2 gm/Sodium Chloride 100 ml @ 50 mls/hr UNSCH PRN IV 03/20/17 08:00 03/21/17 17:35 Potassium Chloride 100 ml @ 50 mls/hr Q2H PRN IV 03/20/17 08:00 Potassium Chloride 100 ml @ 50 mls/hr Q2H PRN IV 03/20/17 08:00 Potassium Chloride 100 ml @ 50 mls/hr Q2H PRN IV 03/20/17 08:00 03/20/17 18:54 Potassium Chloride 100 ml @ 25 mls/hr UNSCH PRN IV 03/20/17 08:00 03/21/17 08:19 (K-Phos) 2,000 mg Q4H PRN PO 03/20/17 08:00 (K-Phos) 2,000 mg UNSCH PRN PO/TUBE 03/20/17 08:00 Potassium Phosphate 30 mmol/ Sodium Chloride 260 ml @ 42 mls/hr UNSCH PRN IV 03/20/17 08:00 03/22/17 09:36 Sodium Phosphate 30 mmol/Sodium Chloride 250 ml @ 42 mls/hr UNSCH PRN IV 03/20/17 08:00 (Pepcid Inj) 20 mg Q12HR IV PUSH 03/20/17 09:00 03/24/17 19:56 (Zofran Inj) 4 mg Q6H PRN IV PUSH 03/20/17 08:00 (Duoneb Neb) 1 ampule Q2HR NEB PRN INH 03/20/17 08:00 (Lovenox Inj) 40 mg Q24H SQ 03/20/17 09:00 03/24/17 10:50 Miscellaneous Information 1 Q361D XX 03/20/17 08:00 (Chlorhexidine 2% Cloth) 3 pack Taper DAILY@04 TOP 03/21/17 04:00 03/17/18 03:59 03/24/17 19:56 (Chlorhexidine 2% Cloth) 3 pack UNSCH PRN TOP 03/20/17 08:00 (Meghna-Colace) 1 tab BID PO 03/20/17 09:00 03/24/17 19:56 (Theragran) 1 tab DAILY PO 03/21/17 09:00 03/24/17 10:50 (Vitamin B1) 100 mg DAILY PO 03/23/17 09:00 03/24/17 10:50 Levofloxacin/ Dextrose 100 ml @ 100 mls/hr Q24H IV 03/22/17 14:00 03/24/17 13:59 Aztreonam 1000 mg/ Sodium Chloride 100 ml @ 200 mls/hr Q8H IV 03/22/17 20:00 03/25/17 02:29 (D50w (Vial) Inj) 50 ml UNSCH PRN IV 03/22/17 18:45 (Glucagon Inj) 1 mg UNSCH PRN OTHER 03/22/17 18:45 (NovoLOG SUPPLEMENTAL SCALE) 1 ACHS SLIDING SCALE SQ 03/22/17 21:00 03/23/17 08:00 (SoluCORTEF INJ) 100 mg Q12HR IV PUSH 03/23/17 21:00 03/24/17 19:55 Dexmedetomidine HCl 200 mcg/ Sodium Chloride 50 ml @ 7.21 mls/hr TITRATE PRN IV 03/23/17 19:00 03/24/17 08:24 Family History She denies family psychiatric history Social History Patient was born and raised in [place], she lives in [place] with her boyfriend, she is unemployed, supported by [facility], once, her highest level of education is high school Patient's Strengths (min. 2) Verbal communication Physical Exam Patient seems to be very sedated, still under the effects of sedating agents in the ICU, but no tremors, no withdrawal, no EPS, no psychomotor agitation or retardation present Vital Signs Vital Signs Date Time Temp Pulse Resp B/P (MAP) Pulse Ox O2 Delivery O2 Flow Rate FiO2 03/25/17 06:00 56 03/25/17 04:00 98.0 20 113/60 (77) 95 Arterial Line 03/24/17 19:35 21 03/24/17 12:18 Nasal Cannula 4 I/O 03/25/17 03/25/17 03/26/17 08:00 16:00 00:00 Intake Total 200 ml Output Total 1600 ml Balance -1400 ml Lab Results Test 03/24/17 11:00 03/25/17 06:00 Blood Gas Puncture Site ART LINE Blood Gas Patient Temperature 98.6 Blood Gas HCO3 25 mmol/L Blood Gas Base Excess 1.5 mmol/L Blood Gas Oxygen Saturation 97 % Arterial Blood pH 7.46 Arterial Blood Partial Pressure CO2 36 mmHg Arterial Blood Partial Pressure O2 140 mmHg Arterial Blood Oxygen Content 11.8 Vol % Arterial Blood Carboxyhemoglobin 1.4 % Arterial Blood Methemoglobin 0.8 % Blood Gas Hemoglobin 8.5 G/DL Oxygen Delivery Device VENTILATOR Blood Gas Ventilator Setting CPAP+5/PS+5 Blood Gas Inspired Oxygen 40 % White Blood Count 8.5 TH/MM3 Red Blood Count 3.27 MIL/MM3 Hemoglobin 8.0 GM/DL Hematocrit 24.6 % Mean Corpuscular Volume 75.5 FL Mean Corpuscular Hemoglobin 24.6 PG Mean Corpuscular Hemoglobin Concent 32.6 % Red Cell Distribution Width 20.2 % Platelet Count 290 TH/MM3 Mean Platelet Volume 7.3 FL Blood Urea Nitrogen 16 MG/DL Creatinine 0.47 MG/DL Random Glucose 66 MG/DL Calcium Level 8.0 MG/DL Phosphorus Level 2.5 MG/DL Magnesium Level 1.7 MG/DL Sodium Level 145 MEQ/L Potassium Level 2.9 MEQ/L Chloride Level 109 MEQ/L Carbon Dioxide Level 27.5 MEQ/L Anion Gap 9 MEQ/L Estimat Glomerular Filtration Rate 143 ML/MIN Date/Time Source Procedure Growth Status 03/20/17 07:25 Blood Peripheral Aerobic Blood Culture - Preliminary NO GROWTH IN 4 DAYS Resulted 03/20/17 07:25 Blood Peripheral Anaerobic Blood Culture - Preliminary NO GROWTH IN 4 DAYS Resulted 03/22/17 15:10 Sputum Endotracheal Gram Stain - Final Resulted 03/22/17 15:10 Sputum Culture - Preliminary Beta Strep Not Group A Resulted 03/20/17 07:20 Urine Catheterized Urine Urine Culture - Final NO GROWTH IN 48 HOURS. Complete Mental Status Examination Appearance woman, age appearing, [facility], she still sedated, superficially cooperative Speech: Unremarkable, Hesitant, Other (low volume and tone) Orientation: x3 Memory: Unremarkable Thought Process: Logical, Goal Directed, Linear Thought Content: Unremarkable Language Good grammar, coherent diction, correctly use of wording Fund of Knowledge Adequate for level of education Hallucination Type: None Attention and Concentration: Good Suicidal Ideation: Yes Previous Suicide Attempts: Yes Homicidal Ideation: No Previous Homicide Attempts: No Insight: Poor Affect: Sad Mood: Sad Motor Activity: Normal gait Assessment & Plan Problem List: (1) Major depressive disorder, recurrent ICD Codes: F33.9 - Major depressive disorder, recurrent, unspecified Assessment & Plan: On psychiatric evaluation today the patient presents is still in the sedated side, superficially cooperative, with difficulties speaking due to recent extubation. Patient persistently minimized her current suicidal attempt. She says that she overdosed on the influences alcohol after an argument with boyfriend, she says that she just took 4 Xanax and 4 pills of Latuda, even though labs shows that Depakote levels, acetaminophen levels were elevated, and [place] at the documentation explains that the patient took several other medications. At the moment of this evaluation patient states not to be able to elaborate about emotions and circumstances around suicidal attempt. Patient needs to continue her current process of medical stabilization, but once the patient is more stable she needs to be to transfer to med psych unit to continue her medical care as well as psychiatric care, but also important for safety. Patient needs to remain with a sitter the medical floor for safety. No psychotropics recommended at this moment. Full psychiatric and psychosocial assessment still pending. Collateral information is crucial. Unclear if was seems to be a highly lethal suicidal attempt was the result of a primary major mood disorder decompensation, substance-induced mood disorder, or maybe is probably linked to personality pathology. Extensive support, motivation and psychoeducation provided. Consult appreciated. Assessment & Plan Estimated LOS: Osman Zuniga MD Mar 25, 2017 07:40
[2017-03-25] MEDS: INSULIN ASPART SUPPLEMENTAL SCALE SQ SCH ×4 (08:00→20:48)
[2017-03-25] MEDS: MULTIVITAMIN TAB PO SCH (08:45)
[2017-03-25] MEDS: HYDROCORTISONE SOD SUCCINATE 100 MG VIAL IV PUSH SCH (08:45)
[2017-03-25] MEDS: DOCUSATE SODIUM 50 MG/SENNA 8.6 MG TAB PO SCH ×2 (08:45→20:48)
[2017-03-25] MEDS: FAMOTIDINE 20 MG/2 ML VIAL IV PUSH SCH ×2 (08:45→20:48)
[2017-03-25] MEDS: THIAMINE HCL 100 MG TAB PO SCH (08:46)
[2017-03-25] MEDS: ENOXAPARIN SODIUM 40 MG/0.4 ML SYRINGE SQ SCH (08:47)
--- NOTE | 2017-03-25 11:23 | HHI.CCPN ---
Subjective Remarks/Hospital Course This is a middle-aged female with an unknown past medical history who presents after intentional overdose of medications. EMS found her with an empty bottle of verapamil. Per her initial report, she flushed these pills down the toilet, however, in the ER she may have admitted to taking some or all of them. She also endorsed taking a bottle of Lortab. She endorsed taking a bottle of valproic acid as well. Her tylenol level was 6. her VPA level was 17. EMS said they found empty bottles of verapamil, lortab, methodone, and valproic acid. The patient refuses to answer questions about her medical history or what pills she took. She is arousable but somnolent, but refusing to cooperate. In the emergency department she was given 4gm CaCl, 3 mg glucagon, epinephrine, started on a levophed drip, and then started on high dose insulin therapy at 50 units/hr (1 unit/kg/hr). When I initially evaluated the patient, she was protecting her airway, however, once she arrived to the ICU, she became nauseated and started vomiting, with her somnolence she was no longer protecting her airway and she was emergently intubated. I placed arterial and central lines. we started vasopressin. we increased her insulin drip to 150 units/hr. I discussed the case with poison control who recommended against activated charcoal at this time. they recommended drawing serum osms which we have done. Subjective: 03/21: Acute events overnight the patient severely hypoglycemic, on insulin infusion at 500 units an hour which was discontinued at approximately 3 AM. The patient was started on D5 W2 200 cc/hour, and remained on glucagon 3mg/hr. The patient's blood glucose level was noted to be in the still in the 60s the patient received 0.5 amp of D50, with subsequent elevation of blood glucose level to 180 g/dl. Poison control notified at 7:30, the patient was resumed on insulin 1 unit/kilo/hour for a total of 50 units/hour, the patient continues on D5 at 200 cc/hour with every 30 minute monitoring. Guy-Synephrine has been discontinued since 3 AM the patient continues on norepinephrine and vasopressin for vasopressor support. 03/22: Tmax 99.2. The patient continued over the last 24 hours to be hypoglycemic requiring the 20 infusion with titration to maintain a glucose level. This a.m. the patient's glucose level elevated D20W titration decrease. Currently D20W off, and close monitoring every 30 mins. Glucagon discontinued .The patient vacation yielding extreme agitation. The patient continues now on Versed and propofol with goals to wean Versed infusion off. Concern for aspiration based on chest x-ray reviewed today patient started on Levaquin antibiotic. 03/23: No acute events overnight. Attempt CPAP trials this a.m. patient tolerated for approximately 1 hour. Leukocytosis declining with addition of Levaquin and Atrezonam. Patient remains GCS 11 T. Alert and responsive, follows commands. 03/24: No acute events overnight. The patient was maintained on Precedex infusion. Currently on CPAP trials with plan for extubation. 03/25: Patient was successfully extubated yesterday midmorning. Patient has been removing IVs, removing monitors, refusing medications since extubation. Patient continues a wrist restraints for protection. Med Psych transfer for initiated. The patient alert and oriented 3. Physical therapy evaluation and treatment instituted. Will resume regular diet at this time. Objective Vital Signs Date Time Temp Pulse Resp B/P (MAP) Pulse Ox O2 Delivery O2 Flow Rate FiO2 03/25/17 10:00 68 03/25/17 07:47 100 21 03/25/17 04:00 98.0 20 113/60 (77) Arterial Line 03/24/17 12:18 Nasal Cannula 4 Intake and Output 03/25/17 03/25/17 03/26/17 08:00 16:00 00:00 Intake Total 200 ml Output Total 1600 ml Balance -1400 ml Result Diagram: 03/25/1759903/25/17 06 Imaging Last Impressions Chest X-Ray 03/25/17599 Signed Impressions: Service Date/Time: March 03:50 - CONCLUSION: 1. Interval extubation. 2. Unchanged bibasilar parenchymal opacities more pronounced on the left. Tico Helm Jr., MD Last Impressions Chest X-Ray 03/20/17 0650 Signed Impressions: Service Date/Time: Monday, March 20, 2017 07:03 - CONCLUSION: No acute cardiopulmonary process. Wayne Hensley MD Last Impressions Chest X-Ray 03/20/17 0650 Signed Impressions: Service Date/Time: Monday, March 20, 2017 07:03 - CONCLUSION: No acute cardiopulmonary process. Wayne Hensley MD Objective Remarks GENERAL: Well-developed well-nourished female, alert and oriented with intermittent bouts of laughter in tears, currently refusing medical interventions SKIN: Warm and dry. HEAD: Atraumatic. Normocephalic. EYES: Pupils equal and round. No scleral icterus. Noted scleral edema. No injection or drainage. ENT: No nasal bleeding or discharge. Mucous membranes pink and moist. NECK: Trachea midline. No JVD. CARDIOVASCULAR: Normal rate, regular rhythm. RESPIRATORY: No accessory muscle use. Clear to auscultation. Breath sounds equal bilaterally. GASTROINTESTINAL: Abdomen soft, non-tender, nondistended. No guarding. MUSCULOSKELETAL: Extremities without clubbing, cyanosis, or edema. No obvious deformities. NEUROLOGICAL GCS 15. RASS 0 Motor strength 5/5 B/L upper and lower extremities Date of Insertion: Mar 20, 2017 Date of Insertion: Mar 20, 2017 Line: Central Venous Catheter Side: Left Location: Subclavian A/P Assessment and Plan Assessment: middle-aged female with intentional overdose of suspected Verapamil , methadone, valproic acid and possibly lortab overdose. Her hemodynamics are consistent with calcium channel herber overdose. Continued contact with poison control. Patient now hemodynamically stable. Alert and responsive to commands Plan by systems: Neurologic: Suspected valproic acid overdose Toxic encephalopathy Suspected Lortab overdose Suicide attempt - Frequent neuro checks - GCS 15. Patient intermittently angry and combative refusing medical intervention - Psychiatry following- Dr. Goode-plan for transfer/discharge to med psych unit Respiratory: Acute hypoxic and hypercarbic respiratory failure Probable aspiration pneumonia - Secondary to overdose - Patient on room air, 2 sat greater than 95% -03/23 chest x-ray improvement B/L infiltrates, possible aspiration-antibiotics see below Hydrocortisone 100 mg IV transition to by mouth prednisone with seven-day taper 03/24-extubation Cardiovascular: Calcium channel herber overdose-resolved Hemodynamic collapse secondary to overdose-resolved Mixed cardiogenic/distributive shock secondary to overdose-resolved -Maintain goal MAP > 65 mmHg-phenylephrine discontinued at 03/20/3 AM Renal: Acute kidney injury-resolved -- Strict I/Os - Secondary to hemodynamic collapse - Continue [place] FEN/GI: Acute protein calorie malnutrition - moderate Life-threatening hypokalemia Hyperammonemia Hypoglycemia-resolved Hyponatremia-resolved Hypokalemia - Initiate regular diet -Potassium level 2.9 patient refusing all medications at this time, no ventricular ectopy noted Heme/ID: Anemia- unknown cause - hgb > 7. will monitor. no signs of active bleeding. may likely be from iron deficiency or critical illness - transfuse for hgb < 7. - Follow-up urine culture- NGTD -03/22 PO Levaquin 500 mg/day and Atrezonam IV discontinued -03/22 Obtain sputum culture follow-up results Endocrine: High-dose insulin therapy-resolved High-dose glucagon infusion-resolved - Glucose monitoring per ICU protocol -- SSI Prophylaxis: GI Prophylaxis Pepcid IV DVT Prophylaxis -- SCDs Lovenox Lines: - 03/20 right radial art line discontinued 03/24 - 03/20 left SC TLC will discontinue upon discharge 03/25 - Discontinue [place] Dispo: Discussed with JANITOR at bedside. Plan transfer to med psych unit. Discussed with Dr. Goode., If no bed allocation plan transfer to [facility] floor with [facility] niharika [facility] hospitalists. Level 2 Physician Nancy Pimentel MD Mar 25, 2017 11:23
--- NOTE | 2017-03-25 11:26 | HHI.DS ---
Discharge Summary Admission Date Mar 20, 2017 at 07:20 Admitting Diagnosis Suspected Verapamil OD Brief History This is a middle-aged female with an unknown past medical history who presents after intentional overdose of medications. EMS found her with an empty bottle of verapamil. Per her initial report, she flushed these pills down the toilet, however, in the ER she may have admitted to taking some or all of them. She also endorsed taking a bottle of Lortab. She endorsed taking a bottle of valproic acid as well. Her tylenol level was 6. her VPA level was 17. EMS said they found empty bottles of verapamil, lortab, methodone, and valproic acid. The patient refuses to answer questions about her medical history or what pills she took. She is arousable but somnolent, but refusing to cooperate. In the emergency department she was given 4gm CaCl, 3 mg glucagon, epinephrine, started on a levophed drip, and then started on high dose insulin therapy at 50 units/hr (1 unit/kg/hr). When I initially evaluated the patient, she was protecting her airway, however, once she arrived to the ICU, she became nauseated and started vomiting, with her somnolence she was no longer protecting her airway and she was emergently intubated. I placed arterial and central lines. we started vasopressin. we increased her insulin drip to 150 units/hr. I discussed the case with poison control who recommended against activated charcoal at this time. they recommended drawing serum osms which we have done. CBC/BMP: 03/25/17 0600 03/25/17 0600 Significant Findings Laboratory Tests Test 03/22/17 22:25 03/23/17 04:55 03/23/17 05:37 03/23/17 14:17 Sodium Level 134 MEQ/L (136-145) White Blood Count 13.4 TH/MM3 (4.0-11.0) Red Blood Count 3.62 MIL/MM3 (4.00-5.30) Hemoglobin 8.7 GM/DL (11.6-15.3) Hematocrit 27.1 % (35.0-46.0) Mean Corpuscular Volume 74.9 FL (80.0-100.0) Mean Corpuscular Hemoglobin 23.9 PG (27.0-34.0) Red Cell Distribution Width 20.3 % (11.6-17.2) Random Glucose 159 MG/DL (74-106) Calcium Level 8.3 MG/DL (8.5-10.1) Arterial Blood pH 7.49 (7.380-7.420) 7.50 (7.380-7.420) Arterial Blood Partial Pressure CO2 29 mmHg (38-42) 30 mmHg (38-42) Blood Gas Hemoglobin 9.3 G/DL (12.0-16.0) 9.3 G/DL (12.0-16.0) Test 03/24/17 04:45 03/24/17 11:00 03/25/17 06:00 Red Blood Count 3.35 MIL/MM3 (4.00-5.30) 3.27 MIL/MM3 (4.00-5.30) Hemoglobin 8.2 GM/DL (11.6-15.3) 8.0 GM/DL (11.6-15.3) Hematocrit 25.5 % (35.0-46.0) 24.6 % (35.0-46.0) Mean Corpuscular Volume 76.1 FL (80.0-100.0) 75.5 FL (80.0-100.0) Mean Corpuscular Hemoglobin 24.5 PG (27.0-34.0) 24.6 PG (27.0-34.0) Red Cell Distribution Width 20.2 % (11.6-17.2) 20.2 % (11.6-17.2) Blood Urea Nitrogen 19 MG/DL (7-18) Random Glucose 114 MG/DL (74-106) 66 MG/DL (74-106) Calcium Level 8.2 MG/DL (8.5-10.1) 8.0 MG/DL (8.5-10.1) Chloride Level 110 MEQ/L (98-107) 109 MEQ/L (98-107) Arterial Blood pH 7.46 (7.380-7.420) Arterial Blood Partial Pressure CO2 36 mmHg (38-42) Arterial Blood Partial Pressure O2 140 mmHg (61-120) Arterial Blood Oxygen Content 11.8 Vol % (12.0-20.0) Blood Gas Hemoglobin 8.5 G/DL (12.0-16.0) Creatinine 0.47 MG/DL (0.50-1.00) Potassium Level 2.9 MEQ/L (3.5-5.1) Hospital Course This is a middle-aged female with an unknown past medical history who presents after intentional overdose of medications. EMS found her with an empty bottle of verapamil. Per her initial report, she flushed these pills down the toilet, however, in the ER she may have admitted to taking some or all of them. She also endorsed taking a bottle of Lortab. She endorsed taking a bottle of valproic acid as well. Her tylenol level was 6. her VPA level was 17. EMS said they found empty bottles of verapamil, lortab, methodone, and valproic acid. The patient refuses to answer questions about her medical history or what pills she took. She is arousable but somnolent, but refusing to cooperate. In the emergency department she was given 4gm CaCl, 3 mg glucagon, epinephrine, started on a levophed drip, and then started on high dose insulin therapy at 50 units/hr (1 unit/kg/hr). When I initially evaluated the patient, she was protecting her airway, however, once she arrived to the ICU, she became nauseated and started vomiting, with her somnolence she was no longer protecting her airway and she was emergently intubated. I placed arterial and central lines. we started vasopressin. we increased her insulin drip to 150 units/hr. I discussed the case with poison control who recommended against activated charcoal at this time. they recommended drawing serum osms which we have done. Subjective: 03/21: Acute events overnight the patient severely hypoglycemic, on insulin infusion at 500 units an hour which was discontinued at approximately 3 AM. The patient was started on D5 W2 200 cc/hour, and remained on glucagon 3mg/hr. The patient's blood glucose level was noted to be in the still in the 60s the patient received 0.5 amp of D50, with subsequent elevation of blood glucose level to 180 g/dl. Poison control notified at 7:30, the patient was resumed on insulin 1 unit/kilo/hour for a total of 50 units/hour, the patient continues on D5 at 200 cc/hour with every 30 minute monitoring. Guy-Synephrine has been discontinued since 3 AM the patient continues on norepinephrine and vasopressin for vasopressor support. 03/22: Tmax 99.2. The patient continued over the last 24 hours to be hypoglycemic requiring the 20 infusion with titration to maintain a glucose level. This a.m. the patient's glucose level elevated D20W titration decrease. Currently D20W off, and close monitoring every 30 mins. Glucagon discontinued .The patient vacation yielding extreme agitation. The patient continues now on Versed and propofol with goals to wean Versed infusion off. Concern for aspiration based on chest x-ray reviewed today patient started on Levaquin antibiotic. 03/23: No acute events overnight. Attempt CPAP trials this a.m. patient tolerated for approximately 1 hour. Leukocytosis declining with addition of Levaquin and Atrezonam. Patient remains GCS 11 T. Alert and responsive, follows commands. 03/24: No acute events overnight. The patient was maintained on Precedex infusion. Currently on CPAP trials with plan for extubation. 03/25: Patient was successfully extubated yesterday midmorning. Patient has been removing IVs, removing monitors, refusing medications since extubation. Patient continues a wrist restraints for protection. [facility] Psych transfer for initiated. The patient alert and oriented 3. Physical therapy evaluation and treatment instituted. Will resume regular diet at this time. Pt Condition on Discharge: Good Discharge Disposition: Disc to Psych Care Fac Discharge Instructions DIET: Follow Instructions for: As Tolerated, No Restrictions Activities you can perform: Weight Bearing as Ez Additional Information 03/21: Acute events overnight the patient severely hypoglycemic, on insulin infusion at 500 units an hour which was discontinued at approximately 3 AM. The patient was started on D5 W2 200 cc/hour, and remained on glucagon 3mg/hr. The patient's blood glucose level was noted to be in the still in the 60s the patient received 0.5 amp of D50, with subsequent elevation of blood glucose level to 180 g/dl. Poison control notified at 7:30, the patient was resumed on insulin 1 unit/kilo/hour for a total of 50 units/hour, the patient continues on D5 at 200 cc/hour with every 30 minute monitoring. Guy-Synephrine has been discontinued since 3 AM the patient continues on norepinephrine and vasopressin for vasopressor support. 03/22: Tmax 99.2. The patient continued over the last 24 hours to be hypoglycemic requiring the 20 infusion with titration to maintain a glucose level. This a.m. the patient's glucose level elevated D20W titration decrease. Currently D20W off, and close monitoring every 30 mins. Glucagon discontinued .The patient vacation yielding extreme agitation. The patient continues now on Versed and propofol with goals to wean Versed infusion off. Concern for aspiration based on chest x-ray reviewed today patient started on Levaquin antibiotic. 03/23: No acute events overnight. Attempt CPAP trials this a.m. patient tolerated for approximately 1 hour. Leukocytosis declining with addition of Levaquin and Atrezonam. Patient remains GCS 11 T. Alert and responsive, follows commands. 03/24: No acute events overnight. The patient was maintained on Precedex infusion. Currently on CPAP trials with plan for extubation. 03/25: Patient was successfully extubated yesterday midmorning. Patient has been removing IVs, removing monitors, refusing medications since extubation. Patient continues a wrist restraints for protection. IV medications discontinued. Steroids antibiotics transition to by mouth form. Med Psych transfer for initiated. The patient alert and oriented 3. Physical therapy evaluation and treatment instituted. Will resume regular diet at this time. Planned transfer to med psych unit with Dr. Mane Jenkins following Nancy Sidhu MD Mar 25, 2017 11:26
[2017-03-25] MEDS: predniSONE 10 MG TAB PO SCH (12:00)
[2017-03-25] MEDS: LEVOFLOXACIN 500 MG TAB PO SCH (12:00)
[2017-03-25] MEDS ORDERED: SODIUM CHLOR 0.9% 1000 ML INJ 1,000 ML IV SCH (14:30)
[2017-03-26] VITALS (12 sets, daily range): BP systolic 123–161; BP diastolic 61–84; PULSE 51–74; RESP 18–25; TEMP 98.7–99.3; O2SAT 98–100
[2017-03-26] MEDS: CHLORHEXIDINE GLUCONATE 2 % 1 PACK (2 CLOTHS) TOP SCH (04:00)
[2017-03-26 06:48] LABS: HEMATOCRIT 25.3 % (35.0-46.0); MEAN CELL VOLUME 75.5 FL (80.0-100.0); MEAN CORPUSCULAR HEMOGLOBIN 24.7 PG (27.0-34.0); MEAN CORPUSCULAR HGB CONC 32.7 % (32.0-36.0); PLATELET COUNT 293 TH/MM3 (150-450); RED BLOOD COUNT 3.35 MIL/MM3 (4.00-5.30); RED CELL DISTRIBUTION WIDTH 20.1 % (11.6-17.2); REVIEW FLAG FINAL; WHITE BLOOD COUNT 7.6 TH/MM3 (4.0-11.0)
[2017-03-26 07:15] LABS: BICARBONATE 26.8 MEQ/L (21.0-32.0); MAGNESIUM 1.7 MG/DL (1.5-2.5)
[2017-03-26 07:24] LABS: POTASSIUM 2.7 MEQ/L (3.5-5.1)
[2017-03-26] MEDS: INSULIN ASPART SUPPLEMENTAL SCALE SQ SCH ×4 (08:00→21:00)
--- NOTE | 2017-03-26 08:55 | HHI.PR ---
Subjective Remarks K into a lower side, per nurse patient was refusing K supplement. Patient in bed appears in nad. Says she feels much better today. Deneis chest pain , palpitations, headache. n/v/d/c. Feels a little tired. Says he is eating better. No n/v/d/c. Objective Vitals Vital Signs Date Time Temp Pulse Resp B/P (MAP) Pulse Ox O2 Delivery O2 Flow Rate FiO2 03/26/17 06:00 70 03/26/17 04:00 98.7 56 23 134/65 (88) 03/26/17 04:00 56 03/26/17 02:00 51 03/26/17 00:00 53 25 123/61 (81) 100 03/26/17 00:00 73 03/25/17 22:00 56 03/25/17 20:00 55 21 136/66 (89) 100 03/25/17 20:00 72 03/25/17 19:42 95 21 03/25/17 18:00 73 03/25/17 16:00 98.4 51 24 149/68 (95) 100 03/25/17 16:00 51 03/25/17 14:00 62 03/25/17 12:00 54 03/25/17 12:00 98.4 54 20 141/67 (91) 97 03/25/17 10:00 68 I/O 03/25/17 03/25/17 03/25/17 03/26/17 03/26/17 03/26/17 07:00 15:00 23:00 07:00 15:00 23:00 Intake Total 200 ml 960 ml 700 ml Output Total 1600 ml 800 ml Balance -1400 ml 160 ml 700 ml Intake Oral 960 ml 700 ml IV Total 200 ml Output Urine Total 1600 ml 800 ml # Voids 4 # Bowel Movements 1 0 # Sanitary Pads 3 Pads 3 Pads Result Diagram: 03/26/1761403/26/17614 Imaging Last Impressions Chest X-Ray 03/25/17599 Signed Impressions: Service Date/Time: March 03:50 - CONCLUSION: 1. Interval extubation. 2. Unchanged bibasilar parenchymal opacities more pronounced on the left. Tico Helm Jr., MD Objective Remarks GENERAL: Well-developed well-nourished female, alert and oriented with intermittent bouts of laughter in tears CARDIOVASCULAR: Normal rate, regular rhythm. RESPIRATORY: No accessory muscle use. Clear to auscultation. Breath sounds equal bilaterally. GASTROINTESTINAL: Abdomen soft, non-tender, nondistended. No guarding. MUSCULOSKELETAL: Extremities without clubbing, cyanosis, or edema. No obvious deformities. NEUROLOGICAL: Motor strength 5/5 B/L upper and lower extremities. Alert and oriented. Date of Insertion: Mar 20, 2017 Date of Insertion: Mar 20, 2017 Line: Central Venous Catheter Side: Left Location: Subclavian A/P Assessment and Plan Middle-aged female with intentional overdose of suspected Verapamil, methadone, valproic acid and possibly lortab overdose. Her hemodynamics are consistent with calcium channel herber overdose. Continued contact with poison control. Patient now hemodynamically stable. Alert and responsive to commands Neurologic: Suspected valproic acid overdose Toxic encephalopathy, resolving Suspected Lortab overdose Suicide attempt - Frequent neuro checks - GCS 15. Patient intermittently angry and combative refusing medical intervention - Psychiatry following- Dr. Goode-plan for transfer/discharge to med psych unit Respiratory: Acute hypoxic and hypercarbic respiratory failure Probable aspiration pneumonia - Secondary to overdose - Patient on room air, 2 sat greater than 95% -03/23 chest x-ray improvement B/L infiltrates, possible aspiration-antibiotics see below Hydrocortisone 100 mg IV transition to by mouth prednisone with seven-day taper 03/24-extubation Cardiovascular: Calcium channel herber overdose-resolved Hemodynamic collapse secondary to overdose-resolved Mixed cardiogenic/distributive shock secondary to overdose-resolved -Maintain goal MAP > 65 mmHg-phenylephrine discontinued at 03/20/ AM Renal: Acute kidney injury-resolved -- Strict I/Os - Secondary to hemodynamic collapse - Continue [place] FEN/GI: Acute protein calorie malnutrition - moderate Life-threatening hypokalemia Hyperammonemia Hypoglycemia-resolved Hyponatremia-resolved Hypokalemia - Initiate regular diet -Potassium level 2.9 patient refusing all medications at this time, no ventricular ectopy noted Heme/ID: Anemia- unknown cause - hgb > 7. will monitor. no signs of active bleeding. may likely be from iron deficiency or critical illness - transfuse for hgb < 7. - Follow-up urine culture- NGTD -03/22 PO Levaquin 500 mg/day and Atrezonam IV discontinued -03/22 Obtain sputum culture follow-up results Endocrine: High-dose insulin therapy-resolved High-dose glucagon infusion-resolved - Glucose monitoring per ICU protocol -- SSI Prophylaxis: GI Prophylaxis Pepcid IV DVT Prophylaxis -- SCDs Lovenox Lines: - 03/20 right radial art line discontinued 03/24 - 03/20 left SC TLC will discontinue upon discharge 03/25 - Discontinue [place] Dispo: Discussed with the patient, CONCRETE PU[employer] OPERATOR at bedside. Plan transfer to med psych unit , however no beds at this time. Transfer to [facility] floor with sitter at bedside until med/psych bed available. Remove central line Steff Watts MD Mar 26, 2017 08:55
[2017-03-26] MEDS: DOCUSATE SODIUM 50 MG/SENNA 8.6 MG TAB PO SCH ×2 (09:00→21:50)
[2017-03-26] MEDS ORDERED: SODIUM PHOSPHATE INJ 30 MMOL in SODIUM CHLOR 0.9% 250 ML INJ 240 ML IV PRN (09:00)
[2017-03-26] MEDS ORDERED: MAGNESIUM SULFATE INJ 4 GM in SODIUM CHLORIDE 0.9% INJ 92 ML IV PRN (09:00)
[2017-03-26] MEDS ORDERED: MAGNESIUM SULFATE INJ 2 GM in SODIUM CHLORIDE 0.9% INJ 96 ML IV PRN (09:00)
[2017-03-26] MEDS ORDERED: POTASSIUM CHLOR 20 MEQ PREMIX 100 ML IV PRN ×2 (09:00)
[2017-03-26] MEDS: ENOXAPARIN SODIUM 40 MG/0.4 ML SYRINGE SQ SCH (09:00)
[2017-03-26] MEDS ORDERED: POTASSIUM PHOSPHATE MONOBASIC 500 MG TAB PO PRN (09:00)
[2017-03-26] MEDS ORDERED: POTASSIUM CHLOR 40 MEQ PREMIX 100 ML IV PRN ×2 (09:00)
[2017-03-26] MEDS ORDERED: MAGNESIUM OXIDE 400 MG TAB PO PRN (09:00)
[2017-03-26] MEDS ORDERED: POTASSIUM PHOSPHATE MONOBASIC 500 MG TAB PO/TUBE PRN (09:00)
[2017-03-26] MEDS ORDERED: POTASSIUM PHOSPHATE INJ 30 MMOL in SODIUM CHLOR 0.9% 250 ML INJ 250 ML IV PRN (09:00)
[2017-03-26] MEDS: POTASSIUM CHLORIDE 25 MEQ EFFERVESCENT TAB PO PRN ×2 (09:59→18:35)
[2017-03-26] MEDS: FAMOTIDINE 20 MG/2 ML VIAL IV PUSH SCH ×2 (10:01→21:49)
[2017-03-26] MEDS: predniSONE 10 MG TAB PO SCH (10:02)
[2017-03-26] MEDS: MULTIVITAMIN TAB PO SCH (10:02)
[2017-03-26] MEDS: THIAMINE HCL 100 MG TAB PO SCH (10:02)
[2017-03-26] MEDS: LEVOFLOXACIN 500 MG TAB PO SCH (10:02)
[2017-03-27] VITALS: BP 133/73; PULSE 58; RESP 21; O2SAT 94
[2017-03-27 02:00] VITALS: PULSE 61
[2017-03-27] MEDS ORDERED: diphenhydrAMINE HCL 50 MG/ML VIAL ONE (03:36)
[2017-03-27] MEDS ORDERED: LORazepam 2 MG/ML VIAL ONE (03:37)
[2017-03-27] MEDS ORDERED: HALOPERIDOL LACTATE 5 MG/ML AMP IM ONE (03:45)
[2017-03-27] MEDS ORDERED: diphenhydrAMINE HCL 50 MG/ML VIAL IM ONE ×2 (03:45→10:30)
[2017-03-27] MEDS ORDERED: LORazepam 2 MG/ML VIAL IM ONE (03:45)
[2017-03-27 04:00] VITALS: PULSE 52; PULSE 73; RESP 20
[2017-03-27] MEDS: CHLORHEXIDINE GLUCONATE 2 % 1 PACK (2 CLOTHS) TOP SCH (04:00)
--- NOTE | 2017-03-27 04:15 | HHI.PR ---
Subjective Remarks called emergently to evaluate patient who was attempting to leave AMA under [employer] Act hold, combative. I immediately arrived at the patient's room. This patient is well-known to me and is a previous calcium channel herber overdose. patient continues to want to leave AMA and stating she thinks we are kidnapping her. She is pacing, confronting the security sergeant, at times grabbing at her central line. She is a fall risk and will not allow healthcare workers to assist her back to bed. I called the med/psych unit to which she has a discharge order to, but they are unable to accept her at this time. Due to risk of harm that the patient poses to her self and to our staff, I ordered haldol 5mg iv, ativan 2mg iv, benadryl 50mg iv, which successfully brought the patient from a RASS +2 to a RASS -1. She is calm and resting comfortably in bed , protecting her airway. Active Problems: Suicidal Ideation Suicide Attempt Major Depressive Disorder Severe agitation Combativeness Plan: - ativan, haldol, benadryl as described above. - may use soft restraints if needed - psych to re-eval in the AM - transfer to psych facility - Lennon Act still in effect: clearly remains a harm to self and others due to her mental illness. - patient may remain on the hospitalist service, and I would strongly recommend inpatient psych or med/psych facility admission. The patient was critically ill on my evaluation due to the fact that she was agitated, combative, at times reaching for her central line, and a clear harm to herself. Immediate action was taken to prevent life-threatening complications to the patient. Critical care time: 30 minutes. Objective Vital Signs Date Time Temp Pulse Resp B/P (MAP) Pulse Ox O2 Delivery O2 Flow Rate FiO2 03/27/17 02:00 61 03/27/17 00:00 58 03/27/17 00:00 58 21 133/73 (93) 94 03/26/17 22:00 53 03/26/17 20:00 98.7 71 18 139/75 (96) 98 03/26/17 20:00 74 03/26/17 18:00 57 03/26/17 16:00 98.9 57 20 161/77 (105) 100 03/26/17 16:00 66 03/26/17 14:00 60 9/22/17 12:00 53 03/26/17 12:00 99.2 53 20 161/74 (103) 100 03/26/17 10:00 57 03/26/17 08:00 62 03/26/17 08:00 99.3 62 20 126/84 (98) 100 03/26/17 06:00 70 I/O 03/26/17 03/26/17 03/26/17 03/27/17 03/27/17 03/27/17 06:59 14:59 22:59 06:59 14:59 22:59 Intake Total 700 ml 960 ml Output Total 1350 ml Balance 700 ml -390 ml Intake Oral 700 ml 960 ml Output Urine Total 1350 ml # Voids 4 1 # Bowel Movements 0 1 1 Result Diagram: 03/26/17 0615 03/26/17 1000 Sidney Whitehead MD Mar 27, 2017 04:15
[2017-03-27 06:00] VITALS: PULSE 55
[2017-03-27 08:00] VITALS: PULSE 55
[2017-03-27] MEDS: INSULIN ASPART SUPPLEMENTAL SCALE SQ SCH (08:00)
[2017-03-27] MEDS: ENOXAPARIN SODIUM 40 MG/0.4 ML SYRINGE SQ SCH (09:00)
[2017-03-27 10:00] VITALS: PULSE 60
[2017-03-27] MEDS: LEVOFLOXACIN 500 MG TAB PO SCH (10:07)
[2017-03-27] MEDS: DOCUSATE SODIUM 50 MG/SENNA 8.6 MG TAB PO SCH (10:07)
[2017-03-27] MEDS: MULTIVITAMIN TAB PO SCH (10:07)
[2017-03-27] MEDS: THIAMINE HCL 100 MG TAB PO SCH (10:07)
[2017-03-27] MEDS: predniSONE 10 MG TAB PO SCH (10:08)
[2017-03-27] MEDS: FAMOTIDINE 20 MG/2 ML VIAL IV PUSH SCH (10:08)
--- NOTE | 2017-03-27 10:28 | HHI.PYPN ---
Subjective Remarks Agitated, requiring restraints, and not taking K. Endangering her life. Will ETO meds. Review of Systems Except as stated in HPI: all other systems reviewed are Neg Objective Alert: Yes Napoleon: Person, Place Mood: Agitated, Angry Affect: Labile Memory Intact: Immediate Hallucinations: Other Delusions: No Delusion Type: Other Suicidal: Ideation Homicidal: Ideation Insight/Judgment impaired. Labs Date/Time Source Procedure Growth Status 03/20/17 07:25 Blood Peripheral Aerobic Blood Culture - Final NO GROWTH IN 5 DAYS Complete 03/20/17 07:25 Blood Peripheral Anaerobic Blood Culture - Final NO GROWTH IN 5 DAYS Complete 03/22/17 15:10 Sputum Endotracheal Gram Stain - Final Complete 03/22/17 15:10 Sputum Culture - Final Beta Strep Not Group A Haemophilus Influenzae Complete 03/20/17 07:20 Urine Catheterized Urine Urine Culture - Final NO GROWTH IN 48 HOURS. Complete Vitals/IOs Vital Signs Date Time Temp Pulse Resp B/P (MAP) Pulse Ox O2 Delivery O2 Flow Rate FiO2 03/27/17 06:00 55 03/27/17 04:00 20 03/27/17 00:00 94 03/26/17 20:00 98.7 03/25/17 19:42 21 03/24/17 12:18 Nasal Cannula 4 Assessment & Plan Problem List: (1) Major depressive disorder, recurrent ICD Codes: F33.9 - Major depressive disorder, recurrent, unspecified Assessment & Plan Estimated LOS: days Geodon and Benjulio Justification for Cont. Inpt. unable to care for self Hermelindo Arauz MD Mar 27, 2017 10:28
[2017-03-27] MEDS ORDERED: ZIPRASIDONE MESYLATE 20 MG VIAL IM ONE (10:30)
[2017-03-27 10:40] LABS: HEMATOCRIT 28.3 % (35.0-46.0); MEAN CELL VOLUME 75.6 FL (80.0-100.0); MEAN CORPUSCULAR HEMOGLOBIN 24.3 PG (27.0-34.0); MEAN CORPUSCULAR HGB CONC 32.1 % (32.0-36.0); PLATELET COUNT 343 TH/MM3 (150-450); RED BLOOD COUNT 3.75 MIL/MM3 (4.00-5.30); RED CELL DISTRIBUTION WIDTH 20.1 % (11.6-17.2); REVIEW FLAG FINAL; WHITE BLOOD COUNT 7.2 TH/MM3 (4.0-11.0)
[2017-03-27 11:04] LABS: BICARBONATE 28.4 MEQ/L (21.0-32.0); POTASSIUM 3.2 MEQ/L (3.5-5.1)
[2017-03-27] MEDS ORDERED: ALUMINUM/MAGNESIUM/SIMETH 30 ML CUP PO PRN (12:30)
[2017-03-27] MEDS ORDERED: LORazepam 1 MG TAB PO PRN (12:30)
[2017-03-27] MEDS ORDERED: LORazepam 2 MG/ML VIAL IM PRN (12:30)
[2017-03-27] MEDS ORDERED: traZODone HCL 50 MG TAB PO PRN (12:30)
[2017-03-27] MEDS ORDERED: ACETAMINOPHEN 325 MG TAB PO PRN (12:30)
[2017-03-27] MEDS ORDERED: MAGNESIUM HYDROXIDE SUSP 30 ML CUP PO PRN (12:30)
--- NOTE | 2017-03-27 13:01 | HHI.PR ---
Subjective Remarks Follow-up major depressive illness/suicidal ideation/combativeness 03/27/17-patient seen and examined, she was given albuterol Ativan and Benadryl overnight secondary to combativeness, agitation and wanted to leave AMA. This morning again, patient wanted to leave AMA and she was very combative Objective Vitals Vital Signs Date Time Temp Pulse Resp B/P (MAP) Pulse Ox O2 Delivery O2 Flow Rate FiO2 03/27/17 10:00 60 03/27/17 08:00 55 03/27/17 06:00 55 03/27/17 04:00 73 20 03/27/17 04:00 52 03/27/17 02:00 61 03/27/17 00:00 58 03/27/17 00:00 58 21 133/73 (93) 94 03/26/17 22:00 53 03/26/17 20:00 98.7 71 18 139/75 (96) 98 03/26/17 20:00 74 03/26/17 18:00 57 03/26/17 16:00 98.9 57 20 161/77 (105) 100 03/26/17 16:00 66 03/26/17 14:00 60 I/O 03/26/17 03/26/17 03/26/17 03/27/17 03/27/17 03/27/17 07:00 15:00 23:00 07:00 15:00 23:00 Intake Total 700 ml 960 ml Output Total 1350 ml Balance 700 ml -390 ml Intake Oral 700 ml 960 ml Output Urine Total 1350 ml # Voids 4 3 # Bowel Movements 0 1 1 Result Diagram: 03/27/17 1005 03/27/17 1005 Imaging Last Impressions Chest X-Ray 03/25/17 0600 Signed Impressions: Service Date/Time: March 03:50 - CONCLUSION: 1. Interval extubation. 2. Unchanged bibasilar parenchymal opacities more pronounced on the left. Tico Helm Jr., MD Objective Remarks GENERAL: Combative and agitated with 4 point restraints SKIN: Warm and dry. HEAD: Normocephalic. EYES: No scleral icterus. No injection or drainage. NECK: Supple, trachea midline. No JVD or lymphadenopathy. CARDIOVASCULAR: Regular rate and rhythm without murmurs, gallops, or rubs. RESPIRATORY: Breath sounds equal bilaterally. No accessory muscle use. GASTROINTESTINAL: Abdomen soft, non-tender, nondistended. MUSCULOSKELETAL: No cyanosis, or edema. BACK: Nontender without obvious deformity. No CVA tenderness. Procedures none Date of Insertion: Mar 20, 2017 Date of Insertion: Mar 20, 2017 Line: Central Venous Catheter Side: Left Location: Subclavian A/P Problem List: (1) Major depressive disorder, recurrent ICD Code: F33.9 - Major depressive disorder, recurrent, unspecified (2) Tylenol overdose ICD Code: T39.1X1A - Poisoning by 4-Aminophenol derivatives, accidental ( unintentional), initial encounter Status: Acute (3) Calcium channel herber overdose ICD Code: T46.1X1A - Poisoning by calcium-channel blockers, accidental ( unintentional), initial encounter Status: Acute Assessment and Plan 46-year-old female with Suspected valproic acid overdose Toxic encephalopathy-resolved Suspected Lortab overdose Suicide attempt Continue Lennon act Transfer to [facility] psych Appreciate input from psychiatry Acute hypoxic and hypercarbic respiratory failure-resolved Probable aspiration pneumonia-currently on Levaquin 03/24-extubation Calcium channel herber overdose-resolved Hemodynamic collapse secondary to overdose-resolved Mixed cardiogenic/distributive shock secondary to overdose-resolved Acute kidney injury-resolved Acute protein calorie malnutrition - moderate Life-threatening hypokalemia Hyperammonemia Hypoglycemia-resolved Hyponatremia-resolved Hypokalemia patient refusing all medications at this time High-dose insulin therapy-resolved High-dose glucagon infusion-resolved - Glucose monitoring per ICU protocol -- SSI Prophylaxis: GI Prophylaxis Pepcid IV DVT Prophylaxis -- SCDs Cordell Leonard MD Mar 27, 2017 13:01
[2017-03-27] MEDS ORDERED: GNP100TA3 PO (13:06)
[2017-03-27] MEDS ORDERED: LEVA500T20 PO (13:06)
[2017-03-27] MEDS ORDERED: PRED10 PO (13:06)
--- NOTE | 2017-03-27 13:08 | HHI.DS ---
Discharge Summary Admission Date Mar 20, 2017 at 07:20 Discharge Date: Mar 27, 2017 Admitting Diagnosis Suspected Verapamil OD (1) Major depressive disorder, recurrent ICD Code: F33.9 - Major depressive disorder, recurrent, unspecified (2) Tylenol overdose ICD Code: T39.1X1A - Poisoning by 4-Aminophenol derivatives, accidental ( unintentional), initial encounter Status: Acute (3) Calcium channel herber overdose ICD Code: T46.1X1A - Poisoning by calcium-channel blockers, accidental ( unintentional), initial encounter Status: Acute Procedures none Brief History - From Admission This is a middle-aged female with an unknown past medical history who presents after intentional overdose of medications. EMS found her with an empty bottle of verapamil. Per her initial report, she flushed these pills down the toilet, however, in the ER she may have admitted to taking some or all of them. She also endorsed taking a bottle of Lortab. She endorsed taking a bottle of valproic acid as well. Her tylenol level was 6. her VPA level was 17. EMS said they found empty bottles of verapamil, lortab, methodone, and valproic acid. The patient refuses to answer questions about her medical history or what pills she took. She is arousable but somnolent, but refusing to cooperate. In the emergency department she was given 4gm CaCl, 3 mg glucagon, epinephrine, started on a levophed drip, and then started on high dose insulin therapy at 50 units/hr (1 unit/kg/hr). When I initially evaluated the patient, she was protecting her airway, however, once she arrived to the ICU, she became nauseated and started vomiting, with her somnolence she was no longer protecting her airway and she was emergently intubated. I placed arterial and central lines. we started vasopressin. we increased her insulin drip to 150 units/hr. I discussed the case with poison control who recommended against activated charcoal at this time. they recommended drawing serum osms which we have done. CBC/BMP: 03/27/17 1005 03/27/17 1005 Significant Findings Laboratory Tests Test 03/25/17 06:00 03/26/17 06:15 03/26/17 10:00 03/27/17 10:05 Red Blood Count 3.27 MIL/MM3 (4.00-5.30) 3.35 MIL/MM3 (4.00-5.30) 3.75 MIL/MM3 (4.00-5.30) Hemoglobin 8.0 GM/DL (11.6-15.3) 8.3 GM/DL (11.6-15.3) 9.1 GM/DL (11.6-15.3) Hematocrit 24.6 % (35.0-46.0) 25.3 % (35.0-46.0) 28.3 % (35.0-46.0) Mean Corpuscular Volume 75.5 FL (80.0-100.0) 75.5 FL (80.0-100.0) 75.6 FL (80.0-100.0) Mean Corpuscular Hemoglobin 24.6 PG (27.0-34.0) 24.7 PG (27.0-34.0) 24.3 PG (27.0-34.0) Red Cell Distribution Width 20.2 % (11.6-17.2) 20.1 % (11.6-17.2) 20.1 % (11.6-17.2) Creatinine 0.47 MG/DL (0.50-1.00) 0.44 MG/DL (0.50-1.00) Random Glucose 66 MG/DL (74-106) Calcium Level 8.0 MG/DL (8.5-10.1) 8.0 MG/DL (8.5-10.1) 8.4 MG/DL (8.5-10.1) Potassium Level 2.9 MEQ/L (3.5-5.1) 2.7 MEQ/L (3.5-5.1) 3.1 MEQ/L (3.5-5.1) 3.2 MEQ/L (3.5-5.1) Chloride Level 109 MEQ/L (98-107) Mean Platelet Volume 6.9 FL (7.0-11.0) Imaging Last Impressions Chest X-Ray 03/25/17 0600 Signed Impressions: Service Date/Time: March 03:50 - CONCLUSION: 1. Interval extubation. 2. Unchanged bibasilar parenchymal opacities more pronounced on the left. Tico Helm Jr., MD PE at Discharge GENERAL: Combative and agitated with 4 point restraints SKIN: Warm and dry. HEAD: Normocephalic. EYES: No scleral icterus. No injection or drainage. NECK: Supple, trachea midline. No JVD or lymphadenopathy. CARDIOVASCULAR: Regular rate and rhythm without murmurs, gallops, or rubs. RESPIRATORY: Breath sounds equal bilaterally. No accessory muscle use. GASTROINTESTINAL: Abdomen soft, non-tender, nondistended. MUSCULOSKELETAL: No cyanosis, or edema. BACK: Nontender without obvious deformity. No CVA tenderness. Hospital Course Suspected valproic acid overdose Toxic encephalopathy-resolved Suspected Lortab overdose Suicide attempt Continue Lennon act Transfer to [facility] Appreciate input from psychiatry Acute hypoxic and hypercarbic respiratory failure-resolved Probable aspiration pneumonia-currently on Levaquin 03/24-extubation Calcium channel herber overdose-resolved Hemodynamic collapse secondary to overdose-resolved Mixed cardiogenic/distributive shock secondary to overdose-resolved Acute kidney injury-resolved Acute protein calorie malnutrition - moderate Life-threatening hypokalemia Hyperammonemia Hypoglycemia-resolved Hyponatremia-resolved Hypokalemia patient refusing all medications at this time High-dose insulin therapy-resolved High-dose glucagon infusion-resolved Prophylaxis: GI Prophylaxis Pepcid IV DVT Prophylaxis -- SCDs Lovenox Pt Condition on Discharge: Good Discharge Disposition: Disc to Psych [facility] Discharge Time: > 30 minutes Discharge Instructions DIET: Follow Instructions for: As Tolerated, No Restrictions Activities you can perform: Weight Bearing as Ez Follow up Referrals: PCP Follow-up New Medications: Levofloxacin (Levaquin) 500 Mg Tablet 500 MG PO DAILY for Infection, #5 MG Prednisone (Prednisone) 10 Mg Tab 10 MG PO DAILY for Immunosuppression, #7 TAB Thiamine HCl (Gnp Vitamin B-1) 100 Mg Tab 100 MG PO DAILY for Immunosuppression, #30 TAB Cordell Alas MD Mar 27, 2017 13:08
[2017-03-28] MEDS ORDERED: BUPR150CR PO (13:43)
[2017-03-28] MEDS ORDERED: VIST25CA PO (13:43)
[2017-03-28] MEDS ORDERED: GABA600T PO (16:24)
[2017-03-28] MEDS ORDERED: predniSONE 5 MG TAB PO SCH (21:00)
[2017-03-31] MEDS ORDERED: predniSONE 5 MG TAB PO SCH (09:00)
== END 2017-03-27 13:50 | DRG 917 ==
LOC: NEPE 06:37 → EDBD 07:20 → NEDA 07:20 → HIME 09:40 → HIMW 03-24 15:55
PROVIDERS: ADMIT Hospitalist; ATTEND Hospitalist
PROC: 5A1955Z Respiratory Ventilation, Greater than 96 Consecutive Hours (ICD-10-PCS; principal; 2017-03-20)
PROC: 03HY32Z Insertion of Monitoring Device into Upper Artery, Percutaneous Approach (ICD-10-PCS; 2017-03-20)
PROC: 0BH17EZ Insertion of Endotracheal Airway into Trachea, Via Natural or Artificial Opening (ICD-10-PCS; 2017-03-20)
PROC: 02HV33Z Insertion of Infusion Device into Superior Vena Cava, Percutaneous Approach (ICD-10-PCS; 2017-03-20)
DX: T39.1X2A Poisoning by 4-Aminophenol derivatives, intentional self-harm, initial encounter (principal); J96.01 Acute respiratory failure with hypoxia; R57.8 Other shock; J69.0 Pneumonitis due to inhalation of food and vomit; G92 Toxic encephalopathy; J96.02 Acute respiratory failure with hypercapnia; N17.9 Acute kidney failure, unspecified; E72.20 Disorder of urea cycle metabolism, unspecified; E44.0 Moderate protein-calorie malnutrition; E87.2 Acidosis; E87.1 Hypo-osmolality and hyponatremia; F33.9 Major depressive disorder, recurrent, unspecified; T42.6X2A Poisoning by other antiepileptic and sedative-hypnotic drugs, intentional self-harm, initial encounter; T40.2X2A Poisoning by other opioids, intentional self-harm, initial encounter; E87.6 Hypokalemia; D64.9 Anemia, unspecified; E83.51 Hypocalcemia; E16.2 Hypoglycemia, unspecified; R40.2424 Glasgow coma scale score 9-12, 24 hours or more after hospital admission; Z72.0 Tobacco use; Z78.1 Physical restraint status
CPT/HCPCS: 31500; 36556; 36600; 51702; 71010; 80048; 80053; 80076; 80164; 80307; 81001; 82140; 82550; 82805; 82948; 83605; 83735; 83930; 84100; 84132; 84155; 84295; 84443; 84484; 84703; 85025; 85027; 85610; 85730; 86850; 86900; 86901; 86920; 87040; 87070; 87077; 87086; 87184; 87185; 87205; 87641; 93005; 94002; 94003; 94667; 96374; 96375; 99292; J0132; J0171; J0461; J0610; J1200; J1610; J1630; J1650; J1720; J1815; J1817; J1956; J2060; J2250; J2405; J3411; J3475; J3480; J3486; J7040; J7050; J7060; J7070; J7512

== ENCOUNTER 2017-03-27 14:55 | Inpatient (IN) | payer MEDICARE, OTHER ==
[~2017-03-27 14:55] MED LIST: GNP100TA3 PO; LEVA500T20 PO; PRED10 PO
[2017-03-27] MEDS ORDERED: MAGNESIUM HYDROXIDE SUSP 30 ML CUP PO PRN (15:45)
[2017-03-27] MEDS ORDERED: ALUMINUM/MAGNESIUM/SIMETH 30 ML CUP PO PRN (15:45)
[2017-03-27] MEDS ORDERED: LORazepam 2 MG/ML VIAL IM PRN (15:45)
[2017-03-27] MEDS: NICOTINE 21 MG/24 HR PATCH T-DERMAL SCH (16:06)
[2017-03-27 19:39] VITALS: BP 136/69; PULSE 69; RESP 16; TEMP 97.7; O2SAT 94
[2017-03-27] MEDS: traZODone HCL 50 MG TAB PO PRN (19:44)
[2017-03-27] MEDS: LORazepam 1 MG TAB PO PRN (19:44)
[2017-03-28] MEDS: LORazepam 1 MG TAB PO PRN ×4 (02:14→21:47)
[2017-03-28] MEDS: ACETAMINOPHEN 325 MG TAB PO PRN ×5 (02:58→21:47)
[2017-03-28 06:17] VITALS: BP 131/62; PULSE 55; RESP 18; TEMP 98.9; O2SAT 99
[2017-03-28] MEDS: THIAMINE HCL 100 MG TAB PO SCH (08:26)
[2017-03-28] MEDS: NICOTINE 21 MG/24 HR PATCH T-DERMAL SCH (08:26)
[2017-03-28] MEDS: predniSONE 10 MG TAB PO SCH (09:13)
[2017-03-28] MEDS: LEVOFLOXACIN 500 MG TAB PO SCH (09:13)
--- NOTE | 2017-03-28 11:14 | PD.CONS ---
HPI Service [facility] Hospitalists Consult Requested By Psychiatry Reason for Consult Medical management Primary Care Physician Unknown Diagnoses: History of Present Illness 46 year-old female was recently admitted to medicine secondary to intentional overdose and acute respiratory failure. Patient was initially under the care of critical care medicine then transferred to hospitalist team. During her stay psychiatry was consulted secondary to major depression as patient had suicidal attempts and ideations and she was under Lennon act. She has been treated for aspiration pneumonia. She was discharged in stable conditions yesterday 03/27/17 to med[facility]psych[facility] for [facility] management. Patient's was ambulating in the hallway and denies any chest pain or shortness of breath. She only complains of hemorrhoids however denies any bleeding. Review of Systems Except as stated in HPI: all other systems reviewed are Neg Past Family Social History Allergies: Coded Allergies: Penicillins (Verified Allergy, Intermediate, 03/20/17) Past Medical History Major depression Hemorrhoid Past Surgical History Right rotator cuff surgery D&C Tonsillectomy Reported Medications See EMR Family History Noncontributory Social History Patient denies any history of tobacco, alcohol or easy drug intake Physical Exam Vital Signs Vital Signs Date Time Temp Pulse Resp B/P (MAP) Pulse Ox O2 Delivery O2 Flow Rate FiO2 03/28/17 06:17 98.9 55 18 131/62 (85) 99 03/28/17 03:58 20 03/27/17 19:39 97.7 69 16 136/69 (91) 94 Physical Exam GENERAL: This is a well-nourished, well-developed patient, in no apparent distress. SKIN: No rashes, ecchymoses or lesions. Cool and dry. HEAD: Atraumatic. Normocephalic. No temporal or scalp tenderness. EYES: Pupils equal round and reactive. Extraocular motions intact. No scleral icterus. No injection or drainage. ENT: Nose without bleeding, purulent drainage or septal hematoma. Throat without erythema, tonsillar hypertrophy or exudate. Uvula midline. Airway patent. NECK: Trachea midline. No JVD or lymphadenopathy. Supple, nontender, no meningeal signs. CARDIOVASCULAR: Regular rate and rhythm without murmurs, gallops, or rubs. RESPIRATORY: Clear to auscultation. Breath sounds equal bilaterally. No wheezes , rales, or rhonchi. GASTROINTESTINAL: Abdomen soft, non-tender, nondistended. No hepato-splenomegaly , or palpable masses. No guarding. MUSCULOSKELETAL: Extremities without clubbing, cyanosis, or edema. No joint tenderness, effusion, or edema noted. No calf tenderness. Negative Homans sign bilaterally. NEUROLOGICAL: Awake and alert. Cranial nerves II through XII intact. Motor and sensory grossly within normal limits. Five out of 5 muscle strength in all muscle groups. Normal speech. Assessment and Plan Assessment and Plan 46-year-old female with Major depression with suicidal attempt Management per psychiatry Aspiration pneumonia Currently on Levaquin 3 days total Recent history of acute hypoxic and hypercarbic respiratory failure Resolved Patient to complete prednisone 10 mg daily 7 days total Previously suspected valproic acid overdose Advised against Hemorrhoid Start Preparation H DVT prophylaxis: Encourage ambulation Thank you for this consultation Code Status Full code Discussed Condition With Patient Cordell Alas MD Mar 28, 2017 11:14
[2017-03-28] MEDS ORDERED: VIST25CA PO (13:43)
[2017-03-28] MEDS ORDERED: BUPR150CR PO (13:43)
[2017-03-28 15:24] LABS: ANION GAP 7 MEQ/L (5-15); BICARBONATE 28.7 MEQ/L (21.0-32.0); BLOOD UREA NITROGEN 11 MG/DL (7-18); CHLORIDE 102 MEQ/L (98-107); GLOMERULAR FILTRATION RATE 92 ML/MIN (>89); POTASSIUM 3.6 MEQ/L (3.5-5.1); SODIUM (NA) 138 MEQ/L (136-145)
[2017-03-28 15:36] LABS: HDL CHOLESTEROL 36.7 MG/DL (40.0-60.0); LDL CHOLESTEROL 101 MG/DL (0-99)
[2017-03-28] MEDS ORDERED: GABA600T PO (16:24)
[2017-03-28] MEDS: GABAPENTIN 300 MG CAP PO SCH (17:38)
[2017-03-28] MEDS: PETROLEUM/SHARK LIVER OIL/PHENYLEPHRINE 60 GM TUBE RECTAL PRN (17:39)
[2017-03-28 17:47] VITALS: BP 125/60; PULSE 87; RESP 18; TEMP 98.7; O2SAT 100
--- NOTE | 2017-03-28 18:25 | HHI.HP ---
Provisional Diagnosis Admission Date Mar 27, 2017 at 14:55 [place] I. Adjustment disorder with mixed disturbance of emotion and conduct. Certification of Person's Competence To Provide Express and Informed Consent I have personally examined Vani Seaman , a person being served at [facility] on, Mar 28, 2017 18:21. Express and informed consent means consent voluntarily given in writing, by a competent person, after sufficient explanation and disclosure of the subject matter involved to enable the person to make a knowing and willful decision without any element of force, fraud, deceit, duress, or other form of constraint or coercion. This person is 18 years of age or older, is not now known to be incompetent to consent to treatment with a guardian advocate, and does not have a health care surrogate or proxy currently making medical treatment decisions. I have found this person to be one of the following: [x] Competent to provide express and informed consent, as defined above, for voluntary admission to this facility and is competent to provide express and informed consent for treatment. He/she has the consistent capacity to make well reasoned, willful, and knowing decisions concerning his or her medical or mental health treatment. The person fully and consistently understands the purpose of the admission for examination/placement and is fully capable of personally exercising all rights assured [place] Incompetent to provide express and informed consent to voluntary admission, and this is incompetent to provide express and informed consent to treatment. The person must be transferred to involuntary status and a petition for a guardian advocate filed with the Circuit Court. [] Refusing to provide express and informed consent to voluntary admission but is competent to provide express and informed consent for treatment. The person must be discharged or transferred to involuntary status. Form shall be completed within 24 hours of a person's arrival at the receiving facility and filed in the clinical record of each person: 1. Admitted on a voluntary basis 2. Permitted to provide express and informed consent to his/her own treatment 3. Allowed to transfer from involuntary to voluntary status 4. Prior to permitting a person to consent to his or her own treatment after having been previously found incompetent to consent to treatment. History of Present Illness Capacity: Has Capacity HPI Patient admitted to psychiatry from medicine service after an intentional overdose and respiratory depression. At this time the patient is smiling and laughing and wanting to be discharged from the hospital. She denies any suicidal or homicidal ideation, plan or intent. She is however unable to provide a good reason for her overdose/suicide attempt. She does however denies symptoms of depression, including depressed mood, anhedonia, suicidality , sleep disturbance, appetite disturbance, etc. Patient is noted to have a history of alcohol and occasional drug abuse. Review of Systems Except as stated in HPI: all other systems reviewed are Neg Past Psych History Psychological trauma history Patient denies history of psychological trauma. She has been treated psychiatrically before. Violence risk - others (6 mos) Minimal Violence risk - self (6 mos) Moderate but felt to be baseline. Substance Abuse History Drugs/Alcohol past 12 months Denied by patient. Past Family Social History Coded Allergies: Penicillins (Verified Allergy, Intermediate, 03/20/17) Active Scripts Thiamine HCl (Gnp Vitamin B-1) 100 Mg Tab, 100 MG PO DAILY for Immunosuppression , #30 TAB Prov:Cordell Alas MD 03/27/17 Prednisone (Prednisone) 10 Mg Tab, 10 MG PO DAILY for Immunosuppression, #7 TAB Prov:Cordell Alas MD 03/27/17 Levofloxacin (Levaquin) 500 Mg Tablet, 500 MG PO DAILY for Infection, #5 MG Prov:Cordell Alas MD 03/27/17 Reported Medications Gabapentin (Gabapentin) 600 Mg Tab, 600 MG PO TID, #90 TAB 0 Refills 03/28/17 Hydroxyzine Pamoate (Vistaril) 25 Mg Cap, 25 MG PO HS for Insomnia, CAP 0 Refills 03/28/17 Bupropion HCl ER 12 HR (Wellbutrin SR 12 HR) 150 Mg Tab, 150 MG PO Q12HR for Control Depression, TAB 0 Refills 03/28/17 Current Medications Medications (Trade) Dose Ordered Sig/Hector Route Start Time Stop Time Status Last Admin (Ativan) 1 mg Q6H PRN PO 03/27/17 15:45 03/28/17 15:06 (Ativan Inj) 1 mg Q6H PRN IM 03/27/17 15:45 (Desyrel) 50 mg HS PRN PO 03/27/17 21:00 03/27/17 19:44 (Tylenol) 650 mg Q4H PRN PO 03/27/17 15:45 03/28/17 16:23 (Milk Of Magnesia Liq) 30 ml DAILY PRN PO 03/27/17 15:45 (Mag-Al Plus Susp Liq) 30 ml Q6H PRN PO 03/27/17 15:45 (Habitrol 21 Mg Patch.24 Hr) 1 patch DAILY T-DERMAL 03/28/17 09:00 03/28/17 08:26 Miscellaneous Information 1 HS T-DERMAL 03/28/17 21:00 (Levaquin) 500 mg DAILY PO 03/28/17 09:00 03/28/17 09:13 (Deltasone) 10 mg DAILY PO 03/28/17 09:00 03/28/17 09:13 (Vitamin B1) 100 mg DAILY PO 03/28/17 09:00 03/28/17 08:26 (Preparation H Oint) 1 applic Q6H PRN RECTAL 03/28/17 11:15 03/28/17 17:39 (Wellbutrin Sr) 150 mg Q12HR PO 03/28/17 21:00 (Neurontin) 600 mg TID PO 03/28/17 18:00 03/28/17 17:38 (Vistaril) 25 mg HS PO 03/28/17 21:00 Family History Positive for mood and anxiety disorders Social History Currently unemployed. Denies alcohol and substance abuse. States she wants to find a new doctor to treat her. Patient's Strengths (min. 2) Verbal and has access to healthcare. Physical Exam Vital Signs Vital Signs Date Time Temp Pulse Resp B/P (MAP) Pulse Ox O2 Delivery O2 Flow Rate FiO2 03/28/17 17:47 98.7 87 18 125/60 (81) 100 I/O 03/28/17 03/28/17 03/29/17 08:00 16:00 00:00 Intake Total 840 ml 480 ml Balance 840 ml 480 ml Lab Results Test 03/28/17 14:05 Blood Urea Nitrogen 11 MG/DL Creatinine 0.69 MG/DL Random Glucose 95 MG/DL Calcium Level 8.7 MG/DL Sodium Level 138 MEQ/L Potassium Level 3.6 MEQ/L Chloride Level 102 MEQ/L Carbon Dioxide Level 28.7 MEQ/L Anion Gap 7 MEQ/L Estimat Glomerular Filtration Rate 92 ML/MIN Triglycerides Level 149 MG/DL Cholesterol Level 167 MG/DL LDL Cholesterol 101 MG/DL HDL Cholesterol 36.7 MG/DL Cholesterol/HDL Ratio 4.55 RATIO Vitamin B12 Level 967 PG/ML Thyroid Stimulating Hormone 3rd Gen 0.685 uIU/ML Mental Status Examination Speech: Unremarkable Orientation: x3 Memory: Unremarkable Thought Process: Organized, Goal Directed Thought Content: Unremarkable Hallucination Type: None Attention and Concentration: Good Suicidal Ideation: No Previous Suicide Attempts: Yes Homicidal Ideation: No Previous Homicide Attempts: No Insight: Fair Judgment: WNL Affect: Good Mood: Appropriate Motor Activity: Normal gait Assessment & Plan Problem List: (1) Adjustment disorder with mixed disturbance of emotions and conduct ICD Codes: F43.25 - Adjustment disorder with mixed disturbance of emotions and conduct Assessment & Plan Estimated LOS: days patient does not appear to be depressed. Recommend she be observed for the next 12-24 hours. If she continues to show adequate mood stability, may be considered for discharge with outpatient follow up. Hermelindo Arauz MD Mar 28, 2017 18:25
[2017-03-28] MEDS: REMOVE OLD NICOTINE PATCH T-DERMAL SCH (21:00)
[2017-03-28] MEDS: buPROPion HCL 150 MG SUSTAINED RELEASE TAB PO SCH (21:47)
[2017-03-28] MEDS: traZODone HCL 50 MG TAB PO PRN (21:47)
[2017-03-28] MEDS: hydrOXYzine PAMOATE 25 MG CAP PO SCH (21:47)
[2017-03-29] MEDS: ACETAMINOPHEN 325 MG TAB PO PRN ×3 (05:30→21:01)
[2017-03-29 06:10] VITALS: BP 124/63; PULSE 77; RESP 16; TEMP 97.1; O2SAT 95
[2017-03-29] MEDS: GABAPENTIN 300 MG CAP PO SCH ×3 (08:01→17:45)
[2017-03-29] MEDS: NICOTINE 21 MG/24 HR PATCH T-DERMAL SCH (08:01)
[2017-03-29] MEDS: buPROPion HCL 150 MG SUSTAINED RELEASE TAB PO SCH ×2 (08:02→20:52)
[2017-03-29] MEDS: LEVOFLOXACIN 500 MG TAB PO SCH (08:02)
[2017-03-29] MEDS: predniSONE 10 MG TAB PO SCH (08:02)
[2017-03-29] MEDS: THIAMINE HCL 100 MG TAB PO SCH (08:02)
--- NOTE | 2017-03-29 10:12 | HHI.PYPN ---
Subjective Remarks Patent seen for follow up; chart reviewed. Patient is a 46 y/o woman, has fiancee, two children, unemployed on SSD, past psychiatric history of anxiety disorder, no previous suicide attempts or self injurious behavior who was admitted tot he medical floor initially for intentional overdose resulting in acute respiratory failure and put under Lennon act and transferred to the medical/psychiatric unit for further evaluation and management. Patient found sitting on hospital bed, calm and cooperative with interview but also noted to be guarded and minimizing recent suicide attempt. Patient states that she is in the hospital because she "alliance party too hard" and states that she is getting . She reports having drank alcohol that day and taking her psychiatric medications and "I don't remember alot...we were celebrating". She states that her fiancee found her on the kitchen floor after having fallen and having drank her medications. She also mentions that her urine toxicology had cocaine positive but reports not know how it is in her system as she denies having used it. At this time she states feeling better and wanting to be discharged home. Review of Systems Except as stated in HPI: all other systems reviewed are Neg Objective Alert: Yes [place]: Person, Place, Date Mood: Other ("fine") Affect: Other (guarded then irritable towards end of interview) Memory Intact: Comment (intact except details surrounding her overdose) Hallucinations: Other (denies) Delusions: No Delusion Type: Other (denies) Suicidal: Ideation (denies at this time) Homicidal: Ideation (denies) Insight/Judgment poor insight, impulse control and judgment Labs Test 03/28/17 14:05 Blood Urea Nitrogen 11 MG/DL Creatinine 0.69 MG/DL Random Glucose 95 MG/DL Calcium Level 8.7 MG/DL Sodium Level 138 MEQ/L Potassium Level 3.6 MEQ/L Chloride Level 102 MEQ/L Carbon Dioxide Level 28.7 MEQ/L Anion Gap 7 MEQ/L Estimat Glomerular Filtration Rate 92 ML/MIN Triglycerides Level 149 MG/DL Cholesterol Level 167 MG/DL LDL Cholesterol 101 MG/DL HDL Cholesterol 36.7 MG/DL Cholesterol/HDL Ratio 4.55 RATIO Vitamin B12 Level 967 PG/ML 25-Hydroxy Vitamin D Total 30.0 ng/ML Thyroid Stimulating Hormone 3rd Gen 0.685 uIU/ML Vitals/IOs Vital Signs Date Time Temp Pulse Resp B/P (MAP) Pulse Ox O2 Delivery O2 Flow Rate FiO2 03/29/17 06:10 97.1 77 16 124/63 (83) 95 Intake and Output 03/29/17 03/29/17 03/30/17 08:00 16:00 00:00 Intake Total 120 ml Balance 120 ml Assessment & Plan Problem List: (1) Adjustment disorder with mixed disturbance of emotions and conduct ICD Codes: F43.25 - Adjustment disorder with mixed disturbance of emotions and conduct Assessment & Plan Patient at this time with recent suicide attempt which she minimizes along with poor insight. Patient also with positive urine toxicology for cocaine which she denies use of. Patient not forthcoming with accurate history of recent suicide attempt nor with circumstances surround the same. Will continue current treatment. Collateral information pending. Patient agreed to sign voluntary admission. Discharge planning in progress. Justification for Cont. Inpt. At risk for further decompensation if at lower level of care. Cordell Ma MD Mar 29, 2017 10:12
--- NOTE | 2017-03-29 10:36 | HHI.PR ---
Subjective Remarks Patient seen and examined Complains of painful oral sores Otherwise stable Objective Vitals Vital Signs Date Time Temp Pulse Resp B/P (MAP) Pulse Ox O2 Delivery O2 Flow Rate FiO2 03/29/17 06:10 97.1 77 16 124/63 (83) 95 03/28/17 22:47 20 03/28/17 17:47 98.7 87 18 125/60 (81) 100 I/O 03/28/17 03/28/17 03/28/17 03/29/17 03/29/17 03/29/17 07:00 15:00 23:00 07:00 15:00 23:00 Intake Total 840 ml 480 ml 720 ml Balance 840 ml 480 ml 720 ml Intake Oral 840 ml 480 ml 720 ml # Voids 4 2 4 Result Diagram: 03/28/17 1405 Objective Remarks GENERAL: NAD SKIN: Warm and dry. HEAD: Normocephalic. EYES: No scleral icterus. No injection or drainage. Mouth: Oral sores NECK: Supple, trachea midline. No JVD or lymphadenopathy. CARDIOVASCULAR: Regular rate and rhythm without murmurs, gallops, or rubs. RESPIRATORY: Breath sounds equal bilaterally. No accessory muscle use. GASTROINTESTINAL: Abdomen soft, non-tender, nondistended. MUSCULOSKELETAL: No cyanosis, or edema. BACK: Nontender without obvious deformity. No CVA tenderness. A/P Assessment and Plan 46-year-old female with Major depression with suicidal attempt Management per psychiatry Aspiration pneumonia Currently on Levaquin 2 more days total Recent history of acute hypoxic and hypercarbic respiratory failure Resolved Patient to complete prednisone 10 mg daily 7 days total Previously suspected valproic acid overdose Advised against Hemorrhoid Continue Preparation H Cold sores Start nystatin DVT prophylaxis: Encourage ambulation Cordell Alas MD Mar 29, 2017 10:36
[2017-03-29 13:40] LABS: HEMOGLOBIN A1a 1.8 %; HEMOGLOBIN A1b 1.9 %; HEMOGLOBIN Ao 85.3 %; HEMOGLOBIN LA1C 1.5 %; HEMOGLOBIN P3 3.5 %
[2017-03-29] MEDS: NYSTATIN SUSP 500,000 U/5 ML CUP SWISH-SWAL SCH ×3 (14:58→20:51)
[2017-03-29 17:50] VITALS: BP 130/62; PULSE 82; RESP 17; TEMP 99.2; O2SAT 100
[2017-03-29] MEDS: traZODone HCL 50 MG TAB PO PRN (20:51)
[2017-03-29] MEDS: PETROLEUM/SHARK LIVER OIL/PHENYLEPHRINE 60 GM TUBE RECTAL PRN (20:52)
[2017-03-29] MEDS: hydrOXYzine PAMOATE 25 MG CAP PO SCH (20:52)
[2017-03-29] MEDS: REMOVE OLD NICOTINE PATCH T-DERMAL SCH (21:00)
[2017-03-30] MEDS: LORazepam 1 MG TAB PO PRN ×2 (01:24→07:34)
[2017-03-30] MEDS: ACETAMINOPHEN 325 MG TAB PO PRN ×2 (01:24→05:19)
[2017-03-30 05:03] VITALS: BP 129/60; PULSE 79; RESP 16; TEMP 98.2; O2SAT 99
[2017-03-30] MEDS: PETROLEUM/SHARK LIVER OIL/PHENYLEPHRINE 60 GM TUBE RECTAL PRN (07:35)
[2017-03-30] MEDS: NICOTINE 21 MG/24 HR PATCH T-DERMAL SCH (07:36)
[2017-03-30] MEDS: GABAPENTIN 300 MG CAP PO SCH (07:37)
[2017-03-30] MEDS: buPROPion HCL 150 MG SUSTAINED RELEASE TAB PO SCH (07:37)
[2017-03-30] MEDS: predniSONE 10 MG TAB PO SCH (07:37)
[2017-03-30] MEDS: NYSTATIN SUSP 500,000 U/5 ML CUP SWISH-SWAL SCH (07:38)
[2017-03-30] MEDS: THIAMINE HCL 100 MG TAB PO SCH (07:38)
[2017-03-30] MEDS: LEVOFLOXACIN 500 MG TAB PO SCH (07:38)
[2017-03-30] MEDS ORDERED: GNP100TA3 PO (08:56)
[2017-03-30] MEDS ORDERED: BUPR150CR PO (08:56)
[2017-03-30] MEDS ORDERED: PRED10 PO (08:56)
[2017-03-30] MEDS ORDERED: GABA600T PO (08:56)
[2017-03-30] MEDS ORDERED: HYDR1CAP30 PO (08:56)
--- NOTE | 2017-03-30 08:58 | HHI.DS ---
Psychiatry Discharge Summary Inpatient Psychiatric care?: Yes Advance Directive: No Reason Not Provided: Due to Patient Condition Mental Health AdvanceDirective: No Health Care Proxy: No Admission Admission Date Mar 27, 2017 at 14:55 Admission Diagnosis: (1) Adjustment disorder with mixed disturbance of emotions and conduct ICD Code: F43.25 - Adjustment disorder with mixed disturbance of emotions and conduct Brief History Patient admitted to psychiatry from medicine service after an intentional overdose and respiratory depression. At this time the patient is smiling and laughing and wanting to be discharged from the hospital. She denies any suicidal or homicidal ideation, plan or intent. She is however unable to provide a good reason for her overdose/suicide attempt. She does however denies symptoms of depression, including depressed mood, anhedonia, suicidality , sleep disturbance, appetite disturbance, etc. Patient is noted to have a history of alcohol and occasional drug abuse. Tobacco Use In Past 30 Days: 5 or More Cigarettes/Day Alcohol Use: Monthly or Less Hospital Course Patient is a 46 y/o woman, has fiancee, two children, unemployed on SSD, past psychiatric history of anxiety disorder, no previous suicide attempts or self injurious behavior who was admitted to the medical floor initially for overdose resulting in acute respiratory failure and put under Lennon act and transferred to the medical/psychiatric unit for further evaluation and management. Patient was admitted to the inpatient psychiatry unit for stabilization where she was continued on bupropion 150mg PO BID, gabapentin 600mg PO TID, hydroxyzine 25mg PO HS. Patient responded well to treatment, mood stabilized, did not endorse feeling sad or depressed nor having suicidal ideation. Upon discharge patient reported not wanting to continue drinking alcohol while taking her medications, adhering to her treatment regimen and follow up f or continuity of care. Patient advised to call 911 or go to ED in case of emergency. Patient agrees with plan. Results Blood Pressure 129 / 60 Vital Signs Date Time Temp Pulse Resp B/P (MAP) Pulse Ox O2 Delivery O2 Flow Rate FiO2 03/30/17 05:03 98.2 79 16 129/60 (83) 99 Laboratory Tests Test 03/28/17 14:05 LDL Cholesterol 101 MG/DL (0-99) HDL Cholesterol 36.7 MG/DL (40.0-60.0) Laboratory Results Test 03/28/17 14:05 Cholesterol Level 167 MG/DL (120-200) HDL Cholesterol 36.7 MG/DL (40.0-60.0) Hemoglobin A1c 5.6 % (4.3-6.0) LDL Cholesterol 101 MG/DL (0-99) Triglycerides Level 149 MG/DL (42-150) Summary of Procedures none Pending results at discharge: No Medications # of Antipsychotic meds at D/C: 0 Approp Antipsych med options 1 - Minimum of three failed multiple trials of monotherapy. 2 - Documented plan to taper to monotherapy due to previous use of multiple meds OR cross-taper in progress at D/C. 3 - Documentation of augmentation of Clozapine. 4 - Justification other than those listed in allowable values 1-3, document here : Discharge Discharge Date: Mar 30, 2017 Discharge Diagnosis: (1) Adjustment disorder with mixed disturbance of emotions and conduct Diagnosis: Principal ICD Code: F43.25 - Adjustment disorder with mixed disturbance of emotions and conduct Mental Status Exam at Disch Appearance/Behavior: appears stated age, fair hygiene and grooming, in casual clothing, calm and cooperative, fair eye contact Speech: normal rate, tone and prosody Mood: good Affect: euthymic TP: linear, future oriented TC: denies SI, HI, AVH or delusions Insight/Impulse control/ Judgment: fair Pt Condition on Discharge: Stable Discharge Disposition: Discharge Home Discharge Instructions Diet Instructions: As Tolerated, No Restrictions Activities you can perform: Regular-No Restrictions Discharge Time > 30 minutes Discharge/Advance Care Plan Health Problems: (1) Adjustment disorder with mixed disturbance of emotions and conduct Goals to promote your health * To prevent worsening of your condition and complications * To maintain your health at the optimal level Directions to meet your goals Take your medications as prescribed Follow your dietary instruction Follow activity as directed Keep your appointments as scheduled Take your immunizations and boosters as scheduled If your symptoms worsen call your PCP, if no PCP go to Urgent Care Center or Emergency Room For 25/01 questions related to your inpatient stay or results of tests pending at discharge, please contact Dr. Cordell Ma at Smoking is Dangerous to Your Health. Avoid second hand smoking Cordell Ma MD Mar 30, 2017 08:58
--- NOTE | 2017-03-30 09:40 | HHI.PR ---
Subjective Remarks Patient seen and examined Reports some improvement of oral cold sores No other issues Objective Vitals Vital Signs Date Time Temp Pulse Resp B/P (MAP) Pulse Ox O2 Delivery O2 Flow Rate FiO2 03/30/17 05:03 98.2 79 16 129/60 (83) 99 03/29/17 17:50 99.2 82 17 130/62 (84) 100 I/O 03/29/17 03/29/17 03/29/17 03/30/17 03/30/17 03/30/17 07:00 15:00 23:00 07:00 15:00 23:00 Intake Total 720 ml 900 ml 1350 ml 360 ml 720 ml Balance 720 ml 900 ml 1350 ml 360 ml 720 ml Intake Oral 720 ml 300 ml 1350 ml 360 ml 720 ml IV Total 600 ml # Voids 4 3 4 2 Result Diagram: 03/28/17 1405 Objective Remarks GENERAL: NAD SKIN: Warm and dry. HEAD: Normocephalic. EYES: No scleral icterus. No injection or drainage. Mouth: Oral sores NECK: Supple, trachea midline. No JVD or lymphadenopathy. CARDIOVASCULAR: Regular rate and rhythm without murmurs, gallops, or rubs. RESPIRATORY: Breath sounds equal bilaterally. No accessory muscle use. GASTROINTESTINAL: Abdomen soft, non-tender, nondistended. MUSCULOSKELETAL: No cyanosis, or edema. BACK: Nontender without obvious deformity. No CVA tenderness. A/P Assessment and Plan 46-year-old female with Major depression with suicidal attempt Management per psychiatry Aspiration pneumonia Currently on Levaquin 1 more day Recent history of acute hypoxic and hypercarbic respiratory failure Resolved Patient to complete prednisone 10 mg daily 7 days total Previously suspected valproic acid overdose Advised against Hemorrhoid Continue Preparation H Cold sores Continue nystatin DVT prophylaxis: Encourage ambulation Cordell Alas MD Mar 30, 2017 09:40
[2017-03-30] MEDS ORDERED: PREPOIN RECTAL (10:09)
[2017-03-30] MEDS ORDERED: NYST1000 SWISH-SWAL (10:09)
== END 2017-03-30 10:50 | disposition home or self-care (01) | DRG 882 ==
LOC: H4EA 14:55
PROVIDERS: ADMIT Student in an Organized Health Care Education/Training Program; ATTEND Student in an Organized Health Care Education/Training Program
DX: F43.25 Adjustment disorder with mixed disturbance of emotions and conduct (principal); J69.0 Pneumonitis due to inhalation of food and vomit; K64.9 Unspecified hemorrhoids; Z91.5 Personal history of self-harm; B00.1 Herpesviral vesicular dermatitis
CPT/HCPCS: 80048; 80061; 82306; 82607; 83036; 84443; J7512; Q0177